=== PATIENT | female | born 1950 | race Caucasian/White ===

== ENCOUNTER 2017-01-06 11:41 | Inpatient (IN) ==
[2017-01-06] MEDS ORDERED: GLUCAGON 1 MG VIAL IM PRN ×2 (12:03)
[2017-01-06] MEDS ORDERED: ALBUTEROL/IPRATROPIUM 3 ML NEB RESP TX PRN (12:03)
[2017-01-06] MEDS ORDERED: DEXTROSE 50% 25 GM/50 ML VIAL IV PRN ×2 (12:03)
[2017-01-06] MEDS ORDERED: oxyCODONE/ACETAMINOPHEN 5-325 MG TABLET PO PRN (12:18)
[2017-01-06] MEDS ORDERED: BENZONATATE 100 MG CAPSULE PO PRN (12:31)
[2017-01-06] MEDS ORDERED: LEVOFLOXACIN INJ 250 MG in PREMIX 1 EACH IV SCH (13:30)
[2017-01-06] MEDS ORDERED: AMINOPHYLLINE 500 MG in SODIUM CHLORIDE 0.9% 480 ML IV SCH ×2 (13:45→15:30)
[2017-01-06] MEDS ORDERED: CLINDAMYCIN INJ 300 MG in PREMIX 1 EACH IV SCH (14:00)
[2017-01-06] MEDS ORDERED: methylPREDNISolone SOD SUC 40 MG/1 ML VIAL IV SCH (14:00)
[2017-01-06] MEDS ORDERED: AMINOPHYLLINE 250 MG in SODIUM CHLORIDE 0.9% 100 ML IV ONE (14:00)
--- NOTE | 2017-01-06 14:13 | EKG Report ---
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
[2017-01-06 14:25] LABS: Basophils # 0.1 10*3/uL (0.0-0.2); Basophils % 0.3 % (0.0-0.8); Eosinophils # 0.3 10*3/uL (0.0-0.87); Eosinophils % 1.7 % (0.00-10.9); Hematocrit 41.1 VOL% (35.7-47.0); Hemoglobin 12.4 GM/DL (12.0-16.0); Immature Granulocytes % 0.9 %; Immature Granulocytes Absolute 0.14 #; Lymphocytes # 3.8 10*3/uL (1.4-4.0); Mean Corpuscular HGB Conc 30.2 GM/DL (32-36); Mean Corpuscular Hemoglobin 28 PG (27-34); Mean Corpuscular Volume 93.8 FL (87-102); Monocytes # 0.9 10*3/uL (0.11-0.8); Monocytes % 5.9 % (1.7-12.7); Neutrophils % 66.2 % (38.7-73.9); Platelet Count 250 T/CUMM (130-400); Red Blood Count 4.38 MC/CUMM (3.8-5.5); Red Cell Distribution Width 15.7 % (9.3-17.3); White Blood Count 15.1 T/CUMM (4-12)
[2017-01-06 14:54] LABS: Alanine Aminotransferase 39 U/L (13-56); Albumin 3.1 G/DL (3.4-5.0); Alkaline Phosphatase 117 U/L (45-117); Aspartate Amino Transferase 26 U/L (0-37); Bilirubin,Total < 0.39 MG/DL (0.2-1.0); Blood Urea Nitrogen 37 MG/DL (7-18); Calcium 8.5 MG/DL (8.5-10.1); Glucose 149 MG/DL (74-106); Magnesium 1.5 MG/DL (1.8-2.4); Osmolality,Calculated 303.4 MOS/KG (273-304); Potassium 5.3 MMOL/L (3.5-5.1); Sodium 147 MMOL/L (136-145)
--- NOTE | 2017-01-06 15:01 | Pulmonology History & Physical ---
History of Present Illness Chief complaint: Acute exacerbation of COPD, acute bronchtitis refractory to OP treatment History of present illness: Jose Elias Pires, ANP-BC, GNP-BC, acting as scribe for Dr. Wilbur Marina Mrs. Crowe is a 66-year-old white female from [place], [place]. [facility] by Dr. Maurice Henao. She saw Dr. Henao on 01/02/2017 with complaints of increased shortness of breath and wheeze. The patient was diagnosed with acute bronchitis and bronchospasm. She was instructed to call with if no improvement. She states that over the course of this week she has become progressively more short of breath. She denies dyspnea on exertion and wheeze. She denies any significant sputum production. She states she is not able to mobilize the secretions. Because of her advanced age, multiple comorbidities, acute illness, and the fact that she is in outpatient treatment failure, she is being admitted for further evaluation and care. She denies chills or night sweats. She states she has run a low-grade fever over this past week. She denies solid dysphagia but does report reflux and often times it comes up into her throat. She denies any cardiac angina or palpitations. There's been no bleeding from any site. No TIA symptoms or syncope. No change in bowel or bladder habits. All other systems were reviewed and were negative. Allergies: Codeine, hydrocodone, penicillin, morphine Medications: See list Past medical history: [facility] hospitalization 07/29/2016 through 2015 under the care of Dr. Joey De La Fuente. During that hospitalization the patient was treated for COPD exacerbation as well as acute pneumonia. Gen. hospitalization the patient developed acute middle status changes felt to be secondary to her pain medicines. She was given Narcan at least once. She had a PCO2 as high as 101.0 at one point. She was treated with BiPAP and over time improved to the point where she could safely be discharged home. Past history is also significant for breast cancer on the left. She states she had a lumpectomy in 2007. History of diabetes mellitus, hypertension, COPD, tobacco abuse, diverticulitis/diverticulosis, obstructive sleep apnea, and anemia. Surgical history: Significant for cholecystectomy, hysterectomy, orthopedic shoulder surgery, adenoidectomy, colon stricture resection, tonsillectomy, and lumpectomy. Family history: Positive for breast cancer in her mother. There is also family history of diabetes and hypertension. Social history: The patient is . Her is supportive. She is a current smoker. She states it takes approximately 1-1/2 days to smoke one pack of cigarettes. She's been smoker for at least approximately 20 years. Laboratory (done 01/06/2017 at [facility]): White count is 16,800 with 66.8% segs, 24.2% lymphs, and 8.0% monos; H&H 12.6/40.6 with normal indices and increased red blood cell distribution width; platelet count 246,000 Chest x-ray: Pending EKG: Pending Home Medications Medication Instructions Recorded Confirmed Type Anastrozole 1 mg PO DAILY 07/29/16 08/25/16 History Aspirin EC Tab 81 mg PO DAILY 07/29/16 08/25/16 History B Complex & C No.20/Folic Acid 1 mg PO DAILY 07/29/16 08/25/16 History [Nephrocaps Softgel] Cetirizine Tab [ZyrTEC Tab] 10 mg PO DAILY 07/29/16 08/25/16 History Cholecalciferol (Vitamin D3) 2,000 unit PO DAILY 07/29/16 08/25/16 History [Vitamin D3] Fluticasone/Salmeterol 250-50 1 puff INH BID 07/29/16 08/25/16 History [Advair 250-50] Gabapentin 300 mg PO TID 07/29/16 08/25/16 History Hydralazine HCl 25 mg PO BID W/MEALS 07/29/16 08/25/16 History Insulin Glargine,Hum.rec.anlog 20 unit SUBCUT BEDTIME 07/29/16 08/25/16 History [Lantus SoloStar] Levothyroxine Tab [Synthroid Tab] 100 mcg PO DAILY@0700 07/29/16 08/25/16 History Metoprolol Succinate Xl [Toprol Xl] 25 mg PO DAILY 07/29/16 08/25/16 History Propranolol HCl [Propranolol Tab] 20 mg PO BID 07/29/16 08/25/16 History Rosuvastatin [Crestor] 10 mg PO BEDTIME 07/29/16 08/25/16 History risperiDONE [Risperidone] 0.5 mg PO BID 07/29/16 08/25/16 History sitaGLIPtin [Januvia] 100 mg PO DAILY 07/29/16 08/25/16 History Amitriptyline [Elavil] 25 mg PO BEDTIME 08/25/16 08/25/16 History Benzonatate 100 - 200 mg PO Q8H PRN 08/25/16 08/25/16 History Cholecalciferol (Vitamin D3) 1,000 unit PO DAILY 08/25/16 08/25/16 History [Vitamin D3 Chew Tab] Fluticasone/Salmeterol 250-50 1 puff INH BID 08/25/16 08/25/16 History [Advair 250-50] Ipratropium/Albuterol Inhaler 1 puff INH DAILY 08/25/16 08/25/16 History [Combivent Respimat Inhaler] Pantoprazole Tab [Protonix Tab] 40 mg PO DAILY 08/25/16 08/25/16 History Promethazine Tab [Phenergan Tab] 25 mg PO Q6H PRN 08/25/16 08/25/16 History Allergies Allergy/AdvReac Type Severity Reaction Status Date / Time codeine Allergy Severe Difficulty Verified 08/05/16 00:01 Breathing hydrocodone Allergy Severe Difficulty Verified 08/05/16 00:00 Breathing Penicillins Allergy Unknown Verified 08/05/16 00:03 morphine Allergy HIVES Verified 07/24/16 18:34 Medical,Surgical,& Family Hx - Medical History Cardio: History of: Hypertension No history of: Aneurysm, Cardiac Dysrhythmia, Cerebrovascular Disease, Congenital Heart Disease, CHF, CAD, MD, Pacemaker, PVD, Valvular Heart Disease, Cardiovascular Problems Psychological: No history of: Anxiety Disorders, ADHD, Behavior Problems, Bipolar Disorder, Depression, Previous Suicide Attempt, Psychiatric/Substance Abuse Tx, Schizophrenia, Violent Behavior, Psychiatric Problems Neurology: History of: Migraine, Seizures (last one january 2016) No history of: Brain Aneurysm, Cerebral Hemorrhage, Cerebrovascular Accident , Cerebral Palsy, Dementia, Multiple Sclerosis, Parkinson's Disease, Peripheral Neuropathy, TIA, Vertigo, Neurologocal Cancer HEENT: No history of: Ear Problem, Eye Problem, Dental Problems, Glaucoma, Oral Cancer Endocrine: History of: Diabetes Mellitus (IDDM), Diabetes Mellitus (NIDDM), Thyroid Disorder No history of: Dyslipidemia Rheumatology: History of;: Fibromyalgia No history of;: Gout, Myasthenia Gravis, Psoriasis, Rheumatoid Arthritis, Sjogrens, Systemic Lupus Erythematosus, Rheumatological Problems Respiratory: History of: Asthma, Bronchitis, COPD, Intubation (January 2016 they gave morphine and pt was allergic to it, went into resp dis), Pneumonia No history of: Obstructive Sleep Apnea, Pulmonary Embolism, Pulmonary Hypertension, Lung Cancer, Respiratory Problems Renal: No history of: Renal (Kidney) Cancer, Dialysis, Renal Failure, Renal Problems Genitourinary: No history of: Kidney Stones (left kidney functions right kidney never grew from ), Recurring Urinary Tract Infections, Genitourinary Cancer, Problems Gastrointestinal: History of: Diverticulitis/ Diverticulosis No history of: Bowel Obstruction, Clostridium Difficile, Crohn's Disease, Esophageal Varices, GERD, Gastrointestinal Bleed, Hemorrhoids, Hematochezia, Hepatitis, Liver Problems, Pancreatitis, Polyps, Ulcerative Colitis, Gastrointestinal Cancer, GI Problems Musculoskeletal: History of: Back/Neck Problems (broken vertebra) No history of: Herniated Disk, Osteoporosis, Musculoskeletal Cancer, Musculoskeletal Problems Hematology: History of: Anemia No history of: Blood Transfusion Reaction, Bleeding Problems, Clotting Problems, Sickle Cell Disease, Hematologic Cancer, Blood Disorders Reproductive: History of: Breast Cancer (2007) No history of: Abnormal Pap Smear Other: History of: Anaphylaxis (when morphine was given in 2007), Cancer ( Breast cancer (Left breast) ') No history of: Anesthesia Reactions, Eczema, HIV, Malignant Hyperthermia, MRSA, Vancomycin-Resistant Enterococci, Skin Problems - Surgical History Cardiac Surgeries: Patient Denies: Femoral-Popliteal Bypass Graft, Cardiac Catheterization, Cardiac Surgery, Carotid Endarterectomy, Internal Defibrillator, Vascular Access Devices Thoracic Surgeries: Patient denies;: Kidney (Renal Surgery), Lithotripsy, Nephrectomy, Organ Transplant, Lobectomy Neurologic Surgeries: Patient denies: Brain Aneurysm, Cerebral Hemorrhage, Neurologic Surgery HEENT Surgeries: Surgical HX of: Tonsilectomy & Adenoidectomy Patient denies: Carotid Endarterectomy, Eye Surgery Abdominal Surgeries: Surgical HX of: Abdominal Surgery, Appendectomy, Cholecystectomy, Colonoscopy, EGD Patient denies: Gastric Bypass Surgery, Hernia Repair, Splenectomy Reproductive Surgeries: Surgical HX of;: Hysterectomy Patient denies;: Cystoscopy, Genitourinary Surgery Orthopedic Surgeries: Surgical HX of;: Orthopedic Surgery (shoulder surgery on both shoulders) - Family History Family History: Reports;: Family Cancer (mother-breast ca) Denies;: Family Anesthesia Reaction, Family Diabetes, Family Heart Disease, Family Hypertension, Family Psychiatric Problems, Family Stroke - Social History Smoking Status: Former smoker Frequency of Alcohol Use: None Type of Drug Use: Marijuana Results - Labs CBC & BMP: 01/06/17 14:01 01/06/17 14:00 Exam (Pulmonay) H&P - Constitutional Exam: Psych: Oriented x 3; a pleasant and cooperative patient who is acutely and chronically ill appearing HEENT: Pupils, irises, sclera, conjunctiva, and eyelids are normal. The face is symmetrical without rash or masses. Lips, tongue, buccal mucosa, soft and hard palates, and phayrnx are WNL Neck: Symmetrical. Thyroid was not palpated. Lymphatics: No submandibular, cervical, or supraclavicular adenopathy Chest: Symmetrical with significant LAW and high pitched peripheral wheezes heard, loose LAW congestion Breasts: Deferred CV: Regular with a short grade 1/6 systolic ejection murmur at the left sternal border that does not radiate Arterial: Carotids with a fair upstroke. There is no bruit. Upper extremity pulses are palpable. Lower extremity pulses are palpable. Venous: Exam of the neck, upper, and lower extremities is normal Abd: Obese, but no appreciable organomegaly, masses, tenderness, or bruit; Bowel sounds are positive x 4; The aorta was not palpated /Rectal: Deferred Extremities: No clubbing, cyanosis, or obvious DVT, but there is mild bilateral edema Skin: No cancerous or infectious lesions of the exposed, examined skin; the perineal area was not examined M/S: Age appropriate loss of the normal curvature of the cervical, thoracic, and lumbar spine Neurological: Cranial nerves are intact, Long tract motor function is intact; Sensory exam was not done; gait was not tested. The remainder of the exam was noncontributory. Impression: #1: Acute exacerbation of COPD refractory to OP treatment #2: Acute bronchitis with bronchospasm #3: Hypertension #4: Diabetes mellitus #5: COPD #6: Tobacco abuse #7: History of breast cancer on the left; s/p lumpectomy #8: Hx of diverticulosis/diverticulitis #9: Leukocytosis #10: See past history Plan: #1: Admit to inpatient #2: Iv antibiotics with Levaquin and Cleocin #3: IV Aminophylline #4: IV Solumedrol #5: Sliding scale insulin #6: Inhalation therapy #7: Singulair and Mucinex #8: See orders
--- NOTE | 2017-01-06 15:27 | Ultrasound Report ---
History: Shortness of breath. Lower extremity pain and edema Date: 01/06/2017 Study: Bilateral lower extremity color flow venous Doppler study Comparison exam: July 29, 2016 venous study Color Doppler, wave form analysis, and compression analysis of the deep veins of both lower extremities from the common femoral vein level through the popliteal vein level shows that the veins are readily compressible. There is no abnormal intraluminal material to suggest thrombus. Waveform analysis is unremarkable. Ultrasound images were captured and archived Impression: Normal bilateral lower extremity color flow venous Doppler study. No evidence of deep venous thrombosis PROCEDURE INTERPRETED AT [facility] DEPARTMENT OF RADIOLOGY Final Report Signed by: Dr. Shyla Lobo
[2017-01-06] MEDS: ALBUTEROL/IPRATROPIUM 3 ML NEB RESP TX SCH ×2 (15:49→19:00)
[2017-01-06] MEDS: GABAPENTIN 300 MG CAPSULE PO SCH ×2 (16:37→22:09)
[2017-01-06] MEDS: CYCLOBENZAPRINE 10 MG TABLET PO SCH ×2 (16:37→22:11)
[2017-01-06] MEDS: AMINOPHYLLINE 500 MG in SODIUM CHLORIDE 0.9% 480 ML IV SCH (16:40)
[2017-01-06] MEDS: INSULIN LISPRO 100 UNIT/ML SUBCUT SCH ×2 (16:41→22:12)
[2017-01-06] MEDS: methylPREDNISolone SOD SUC 40 MG/1 ML VIAL IV SCH ×2 (16:46→23:51)
[2017-01-06] MEDS: CLINDAMYCIN INJ 300 MG in PREMIX 1 EACH IV SCH ×2 (16:47→23:51)
[2017-01-06] MEDS: LEVOFLOXACIN INJ 250 MG in PREMIX 1 EACH IV SCH (17:46)
[2017-01-06 18:11] LABS: Apearance,Urine CLEAR (Clear); Bilirubin,Urine Negative (Negative); Blood, Urine Negative (Negative); Glucose,Urine (UA) 50 mg/dL (Negative); Ketones,Urine Negative (Negative); Mucus,Urine Occasional /LPF (Occasional); Nitrite,Urine Negative (Negative); Protein,Urine >=500 MG/DL; RBC,Urine 1 /HPF (0-4); Squamous Epithelial Cell,Urine Occasional /HPF (0-10); Urine Color Yellow (Yellow); Urine Specific Gravity 1.014 (1.001-1.035); Urine Urobilinogen < 2.0 EU/DL (0.2-1.0); WBC,Urine <1 /HPF (0-6)
[2017-01-06] MEDS ORDERED: INSULIN GLARGINE 100 UNIT/ML SUBCUT SCH (21:00)
[2017-01-06] MEDS: MONTELUKAST 10 MG TABLET PO SCH (22:10)
[2017-01-06] MEDS: ROSUVASTATIN 10 MG TABLET PO SCH (22:10)
[2017-01-06] MEDS: risperiDONE 0.5 MG TABLET PO SCH (22:11)
[2017-01-06] MEDS: FAMOTIDINE 20 MG TABLET PO SCH (22:11)
[2017-01-06] MEDS: hydrALAZINE 25 MG TABLET PO SCH (22:11)
[2017-01-07] MEDS: LEVOTHYROXINE 100 MCG TABLET PO SCH (06:18)
[2017-01-07 06:29] LABS: Calcium 8.7 MG/DL (8.5-10.1); Osmolality,Calculated 305.6 MOS/KG (273-304)
[2017-01-07 06:31] LABS: Potassium 6.3 MMOL/L (3.5-5.1)
[2017-01-07 06:41] LABS: Basophils % 0.1 % (0.0-0.8); Immature Granulocytes % 1.3 %; Immature Granulocytes Absolute 0.13 #; Lymphocytes # 0.8 10*3/uL (1.4-4.0); Lymphocytes % 7.7 % (21.3-54.2); Mean Corpuscular Hemoglobin 28 PG (27-34); Mean Corpuscular Volume 94.3 FL (87-102); Mean Platelet Volume 9.2 FL (9.6-12.0); Monocytes # 0.1 10*3/uL (0.11-0.8); Monocytes % 0.9 % (1.7-12.7); Neutrophils # 9.2 10*3/uL (1.4-7.4); Platelet Count 223 T/CUMM (130-400); Red Blood Count 4.24 MC/CUMM (3.8-5.5); Red Cell Distribution Width 15.7 % (9.3-17.3); White Blood Count 10.2 T/CUMM (4-12)
[2017-01-07] MEDS: ALBUTEROL/IPRATROPIUM 3 ML NEB RESP TX SCH ×4 (07:41→19:20)
[2017-01-07] MEDS: PANTOPRAZOLE 40 MG TABLET PO SCH (08:37)
[2017-01-07] MEDS: METOPROLOL SUCCINATE XL 25 MG TABLET PO SCH (08:37)
[2017-01-07] MEDS: sitaGLIPtin 100 MG TABLET PO SCH (08:37)
[2017-01-07] MEDS: MULTIVITAMIN (BEROCCA) TABLET PO SCH (08:37)
[2017-01-07] MEDS: CHOLECALCIFEROL 1,000 UNIT TABLET PO SCH (08:37)
[2017-01-07] MEDS: MONTELUKAST 10 MG TABLET PO SCH ×2 (08:37→21:56)
[2017-01-07] MEDS: FAMOTIDINE 20 MG TABLET PO SCH ×2 (08:38→21:56)
[2017-01-07] MEDS: ANASTROZOLE 1 MG TABLET PO SCH (08:38)
[2017-01-07] MEDS: GABAPENTIN 300 MG CAPSULE PO SCH ×3 (08:38→21:56)
[2017-01-07] MEDS: ASPIRIN EC 81 MG TABLET PO SCH (08:38)
[2017-01-07] MEDS: CYCLOBENZAPRINE 10 MG TABLET PO SCH ×3 (08:38→21:56)
[2017-01-07] MEDS: COLCHICINE 0.6 MG TABLET PO SCH (08:38)
[2017-01-07] MEDS: hydrALAZINE 25 MG TABLET PO SCH ×2 (08:38→21:56)
[2017-01-07] MEDS: risperiDONE 0.5 MG TABLET PO SCH ×2 (08:38→21:56)
[2017-01-07] MEDS: CETIRIZINE 10 MG TABLET PO SCH (08:38)
[2017-01-07] MEDS: methylPREDNISolone SOD SUC 40 MG/1 ML VIAL IV SCH ×2 (08:39→10:20)
[2017-01-07] MEDS: CLINDAMYCIN INJ 300 MG in PREMIX 1 EACH IV SCH ×2 (08:39→16:26)
--- NOTE | 2017-01-07 09:17 | XRay Report ---
History: Shortness of breath Date: 01/07/2017 Study: Chest x-ray PA and lateral Comparison exam: Chest x-ray August 25, 2016 There is mild cardiomegaly. The mediastinal contours are stable compared to the previous study. The pulmonary vasculature is not engorged. There is no pleural effusion. There is some focal patchy density over the left upper lung which could represent pneumonia. There are some scattered emphysematous changes. The osseous structures are unchanged with mild to moderate thoracic spondylosis. There has been previous right shoulder replacement. Impression: Localized patchy pneumonia left upper lung. Radiographic follow-up to resolution is recommended to help exclude other underlying pathology. Mild cardiomegaly PROCEDURE INTERPRETED AT [facility] DEPARTMENT OF RADIOLOGY Final Report Signed by: Dr. Shyla Lobo
[2017-01-07] MEDS: INSULIN LISPRO 100 UNIT/ML SUBCUT SCH ×4 (09:39→21:56)
[2017-01-07] MEDS ORDERED: SODIUM POLYSTYRENE SULFATE 15 GM/60 ML BOTTLE PO ONE (09:53)
--- NOTE | 2017-01-07 10:04 | Pulmonology Progress Note ---
Pulmonary - PN: Subj Interval history: This 66-year-old white female has a history of COPD with acute bronchitis. She came in with acute exacerbation. She is diabetic. She smokes regularly and is now on a NicoDerm patch. Venous Dopplers were done and were negative. Dr. Marina was concerned about possible DVT in her left leg. Patient has a history of breast cancer and is followed by an oncologist in [place]. She apparently runs a slightly elevated potassium all the time. This morning her potassium was 6.3. I reviewed her medications and do not find a specific cause for it. Likely it is renal tubular dysfunction related to her diabetes. We'll give her Kayexalate. Exam (Progress Note) - Constitutional Vitals: Period Temp Pulse Resp BP Sys/Rod Pulse Ox Last 24 Hr 96.5 F-98.2 F 62-89 16-22 144-165/58-93 91-97 Exam: Patient is alert oriented seated on the side of the bed. Vital signs normal. Pupils react to light. Throat is clear. Neck supple no bruits. Chest reveals prolonged expiratory phase with some expiratory wheezes and rhonchi. She is not tight. Heart normal rate rhythm no murmurs. Abdomen soft nontender no masses. Extremities no clubbing cyanosis or edema. Calves nontender. Results - Labs CBC & BMP: 01/07/17 05:31 01/07/17 05:31 Lab Results: I have reviewed the past 24 hour labs Assessment and Plan (1) History of breast cancer Status: Acute Assessment and plan: Followed by oncologist in [place]. Reportedly in remission. Current Visit: Yes (2) Hyperkalemia Status: Acute Assessment and plan: Potassium of 6.3. She is diabetic and has a creatinine of 1.9. Probably has diabetic related renal tubular abnormalities. She's given Kayexalate. Current Visit: Yes (3) Diabetes mellitus Status: Acute Assessment and plan: Poorly controlled with current regimen. We will adjust medications. Current Visit: Yes (4) COPD with exacerbation Status: Acute Assessment and plan: Continuing with antibiotics and bronchodilators. We'll reduce steroids because of hyperglycemia. Current Visit: No (5) Pneumonia Status: Acute Assessment and plan: Has slight patchy infiltrate in the left upper lobe. May have been there on previous portable x-ray of 08/25/2016. However would treat as community- acquired pneumonia. Current Visit: No
[2017-01-07] MEDS ORDERED: INSULIN GLARGINE 100 UNIT/ML SUBCUT SCH (10:08)
[2017-01-07] MEDS: NICOTINE 14 MG/24 HR PATCH TRANSDERM SCH (12:06)
[2017-01-07] MEDS: AMINOPHYLLINE 500 MG in SODIUM CHLORIDE 0.9% 480 ML IV SCH (17:34)
[2017-01-07] MEDS: LEVOFLOXACIN INJ 250 MG in PREMIX 1 EACH IV SCH (18:00)
[2017-01-07] MEDS: ROSUVASTATIN 10 MG TABLET PO SCH (21:56)
[2017-01-08] MEDS: CLINDAMYCIN INJ 300 MG in PREMIX 1 EACH IV SCH ×4 (02:00→23:05)
[2017-01-08 06:05] LABS: Basophils % 0.2 % (0.0-0.8); Hematocrit 38.3 VOL% (35.7-47.0); Hemoglobin 11.4 GM/DL (12.0-16.0); Immature Granulocytes % 1.1 %; Immature Granulocytes Absolute 0.17 #; Lymphocytes # 2.8 10*3/uL (1.4-4.0); Mean Corpuscular HGB Conc 29.8 GM/DL (32-36); Mean Corpuscular Hemoglobin 28 PG (27-34); Mean Corpuscular Volume 95.5 FL (87-102); Mean Platelet Volume 8.9 FL (9.6-12.0); Monocytes % 6.1 % (1.7-12.7); Neutrophils # 11.7 10*3/uL (1.4-7.4); Neutrophils % 74.6 % (38.7-73.9); Platelet Count 205 T/CUMM (130-400); Red Blood Count 4.01 MC/CUMM (3.8-5.5); Red Cell Distribution Width 15.9 % (9.3-17.3); White Blood Count 15.6 T/CUMM (4-12)
[2017-01-08 06:06] LABS: Calcium 8.4 MG/DL (8.5-10.1); Osmolality,Calculated 306.1 MOS/KG (273-304); Potassium 5.5 MMOL/L (3.5-5.1)
[2017-01-08] MEDS: LEVOTHYROXINE 100 MCG TABLET PO SCH (06:29)
[2017-01-08] MEDS: ALBUTEROL/IPRATROPIUM 3 ML NEB RESP TX SCH ×4 (07:07→19:28)
[2017-01-08] MEDS: COLCHICINE 0.6 MG TABLET PO SCH (09:15)
[2017-01-08] MEDS: CETIRIZINE 10 MG TABLET PO SCH (09:15)
[2017-01-08] MEDS: MONTELUKAST 10 MG TABLET PO SCH ×2 (09:15→21:11)
[2017-01-08] MEDS: hydrALAZINE 25 MG TABLET PO SCH ×2 (09:15→21:10)
[2017-01-08] MEDS: NICOTINE 14 MG/24 HR PATCH TRANSDERM SCH (09:15)
[2017-01-08] MEDS: ASPIRIN EC 81 MG TABLET PO SCH (09:16)
[2017-01-08] MEDS: GABAPENTIN 300 MG CAPSULE PO SCH ×3 (09:16→21:10)
[2017-01-08] MEDS: PANTOPRAZOLE 40 MG TABLET PO SCH (09:16)
[2017-01-08] MEDS: CHOLECALCIFEROL 1,000 UNIT TABLET PO SCH (09:16)
[2017-01-08] MEDS: ANASTROZOLE 1 MG TABLET PO SCH (09:16)
[2017-01-08] MEDS: risperiDONE 0.5 MG TABLET PO SCH ×2 (09:16→21:10)
[2017-01-08] MEDS: MULTIVITAMIN (BEROCCA) TABLET PO SCH (09:16)
[2017-01-08] MEDS: FAMOTIDINE 20 MG TABLET PO SCH ×2 (09:16→21:10)
[2017-01-08] MEDS: METOPROLOL SUCCINATE XL 25 MG TABLET PO SCH (09:16)
[2017-01-08] MEDS: sitaGLIPtin 100 MG TABLET PO SCH (09:16)
[2017-01-08] MEDS: CYCLOBENZAPRINE 10 MG TABLET PO SCH ×3 (09:17→21:10)
[2017-01-08] MEDS: INSULIN LISPRO 100 UNIT/ML SUBCUT SCH ×4 (09:29→21:11)
--- NOTE | 2017-01-08 09:33 | Pulmonology Progress Note ---
Pulmonary - PN: Subj Interval history: This 66-year-old white female has a history of COPD with acute bronchitis. She came in with acute exacerbation. She is diabetic. She smokes regularly and is now on a NicoDerm patch. Venous Dopplers were done and were negative. Dr. Marina was concerned about possible DVT in her left leg. Patient has a history of breast cancer and is followed by an oncologist in [place]. She apparently runs a slightly elevated potassium all the time. This morning her potassium was 6.3. I reviewed her medications and do not find a specific cause for it. Likely it is renal tubular dysfunction related to her diabetes. We'll give her Kayexalate. 01/08/17 she feels a little better. Still some cough and wheezing. Potassium is down to 5.5 after Kayexalate. Exam (Progress Note) - Constitutional Vitals: Period Temp Pulse Resp BP Sys/Rod Pulse Ox Last 24 Hr 96.8 F-98.4 F 78-99 17-21 117-153/51-69 92-99 Exam: Patient is alert oriented seated on the side of the bed. Vital signs normal. Pupils react to light. Throat is clear. Neck supple no bruits. Chest reveals prolonged expiratory phase with some expiratory wheezes and rhonchi. She is not tight. Heart normal rate rhythm no murmurs. Abdomen soft nontender no masses. Extremities no clubbing cyanosis or edema. Calves nontender. Little change from yesterday. Results - Labs CBC & BMP: 01/08/17 04:22 01/08/17 04:22 Lab Results: I have reviewed the past 24 hour labs Assessment and Plan (1) History of breast cancer Status: Acute Assessment and plan: Followed by oncologist in [place]. Reportedly in remission. Current Visit: Yes (2) Hyperkalemia Status: Acute Assessment and plan: Potassium of 6.3. She is diabetic and has a creatinine of 1.9. Probably has diabetic related renal tubular abnormalities. She's given Kayexalate. 01/08/17 potassium 5.5. Not on any medications that would elevate potassium. This is likely due to diabetic effects on her kidneys. Current Visit: Yes (3) Diabetes mellitus Status: Acute Assessment and plan: Poorly controlled with current regimen. We will adjust medications. 01/08/17 blood sugars a little bit better. Needs further adjustment. Current Visit: Yes (4) COPD with exacerbation Status: Acute Assessment and plan: Continuing with antibiotics and bronchodilators. We'll reduce steroids because of hyperglycemia. 01/08/17 COPD is a little better. Chronic keep steroids low-dose. Current Visit: No (5) Pneumonia Status: Acute Assessment and plan: Has slight patchy infiltrate in the left upper lobe. May have been there on previous portable x-ray of 08/25/2016. However would treat as community- acquired pneumonia. 01/08/17 continuing empiric antibiotics. Current Visit: No
[2017-01-08] MEDS: methylPREDNISolone SOD SUC 40 MG/1 ML VIAL IV SCH (10:41)
[2017-01-08] MEDS: AMINOPHYLLINE 500 MG in SODIUM CHLORIDE 0.9% 480 ML IV SCH (16:17)
[2017-01-08] MEDS: LEVOFLOXACIN INJ 250 MG in PREMIX 1 EACH IV SCH (17:50)
[2017-01-08] MEDS: INSULIN GLARGINE 100 UNIT/ML SUBCUT SCH (21:11)
[2017-01-08] MEDS: ROSUVASTATIN 10 MG TABLET PO SCH (21:11)
[2017-01-09] MEDS: LEVOTHYROXINE 100 MCG TABLET PO SCH (06:25)
[2017-01-09 06:31] LABS: Basophils % 0.3 % (0.0-0.8); Eosinophils % 0.1 % (0.00-10.9); Immature Granulocytes % 2.3 %; Immature Granulocytes Absolute 0.31 #; Lymphocytes # 2.4 10*3/uL (1.4-4.0); Lymphocytes % 17.6 % (21.3-54.2); Mean Corpuscular HGB Conc 28.9 GM/DL (32-36); Mean Corpuscular Hemoglobin 28 PG (27-34); Mean Platelet Volume 8.9 FL (9.6-12.0); Monocytes # 0.7 10*3/uL (0.11-0.8); Monocytes % 5.2 % (1.7-12.7); Neutrophils # 10.1 10*3/uL (1.4-7.4); Neutrophils % 74.5 % (38.7-73.9); Platelet Count 222 T/CUMM (130-400); Red Cell Distribution Width 16.4 % (9.3-17.3); White Blood Count 13.6 T/CUMM (4-12)
[2017-01-09 06:35] LABS: Hematocrit 39.3 VOL% (35.7-47.0)
[2017-01-09 06:36] LABS: Hemoglobin 11.6 GM/DL (12.0-16.0)
[2017-01-09 06:39] LABS: Calcium 8.6 MG/DL (8.5-10.1); Osmolality,Calculated 303.4 MOS/KG (273-304)
[2017-01-09 06:47] LABS: Potassium 6.7 MMOL/L (3.5-5.1)
[2017-01-09 06:51] LABS: Elliptocytes Few; Hypochromasia Slight
[2017-01-09 06:52] LABS: Platelet Estimate Normal
[2017-01-09] MEDS: ALBUTEROL/IPRATROPIUM 3 ML NEB RESP TX SCH ×4 (07:15→19:30)
[2017-01-09] MEDS: INSULIN LISPRO 100 UNIT/ML SUBCUT SCH ×4 (08:34→21:35)
[2017-01-09] MEDS: CLINDAMYCIN INJ 300 MG in PREMIX 1 EACH IV SCH ×2 (08:35→17:41)
[2017-01-09] MEDS: sitaGLIPtin 100 MG TABLET PO SCH (08:38)
[2017-01-09] MEDS: CETIRIZINE 10 MG TABLET PO SCH (08:38)
[2017-01-09] MEDS: ANASTROZOLE 1 MG TABLET PO SCH (08:38)
[2017-01-09] MEDS: FAMOTIDINE 20 MG TABLET PO SCH ×2 (08:38→21:36)
[2017-01-09] MEDS: METOPROLOL SUCCINATE XL 25 MG TABLET PO SCH (08:39)
[2017-01-09] MEDS: GABAPENTIN 300 MG CAPSULE PO SCH ×3 (08:39→21:36)
[2017-01-09] MEDS: PANTOPRAZOLE 40 MG TABLET PO SCH (08:39)
[2017-01-09] MEDS: risperiDONE 0.5 MG TABLET PO SCH ×2 (08:39→21:36)
[2017-01-09] MEDS: CHOLECALCIFEROL 1,000 UNIT TABLET PO SCH (08:39)
[2017-01-09] MEDS: CYCLOBENZAPRINE 10 MG TABLET PO SCH ×3 (08:39→21:36)
[2017-01-09] MEDS: hydrALAZINE 25 MG TABLET PO SCH ×2 (08:39→21:36)
[2017-01-09] MEDS: MONTELUKAST 10 MG TABLET PO SCH ×2 (08:39→21:36)
[2017-01-09] MEDS: ASPIRIN EC 81 MG TABLET PO SCH (08:40)
[2017-01-09] MEDS: MULTIVITAMIN (BEROCCA) TABLET PO SCH (08:40)
[2017-01-09] MEDS: NICOTINE 14 MG/24 HR PATCH TRANSDERM SCH (08:40)
[2017-01-09] MEDS: COLCHICINE 0.6 MG TABLET PO SCH (08:40)
--- NOTE | 2017-01-09 10:09 | Pulmonology Progress Note ---
Pulmonary - PN: Subj Interval history: There is a 66-year-old white female admitted from my office. She was referred from family practice. My impressions were. #1: Acute exacerbation of COPD refractory to OP treatment #2: Acute bronchitis with bronchospasm #3: Hypertension. Previous nephrectomy. Chronic renal failure. #4: Diabetes mellitus #5: COPD #6: Tobacco abuse #7: History of breast cancer on the left; s/p lumpectomy #8: Hx of diverticulosis/diverticulitis #9: Leukocytosis #10: See past history. Hypothyroidism. Cholecystectomy. Shoulder surgery. Appendectomy. Partial colon resection for stricture. Obstructive sleep apnea. 01/09/2017. Patient is nearly wheeze free. Her pulmonary status is markedly improved. On today's x-ray there is a small abnormality in the left upper lung. It is possible this is an infiltrate mixed in with the areas of calcification. Always have to consider that this may glove turner to be a "popcorn " lesion often seen with hamartomas. Patient has a long history of elevated potassiums. Earlier during this admission she responded to Kayexalate. Potassium is up to 6.7 today and I have asked renal to see her. This patient has only one kidney. Sodium is 147. Chloride is 115. White count is 13,675 segs. H&H 11.6/39.3. Protein and albumin of previously been low. Urine shows no evidence of infection. Theophylline on 20 mg of Aminophyllin per hour is 4.8. Her case this is therapeutic because she is no longer wheezing. I again talked to the patient today about stopping smoking. Based on her answers and attitude I do not think she plans to stop. Jose Elias Pires nurse practitioner was present. Depending on what is found with the patient's height hyperkalemia she might be ready for discharge tomorrow or the next day. We will follow-up chest x-ray tomorrow. Physical exam. Vital signs. See below Psychiatric. Oriented 3 Neurologic. Cranial nerves are intact. Long track motor functions intact Chest. Wheeze free Heart. No gallop Abdomen. Obese. Positive bowel sounds. Nontender Extremities. Nothing to suggest deep venous thrombophlebitis. Neck. Symmetrical. No meningismus. Lymphatics. No submandibular cervical supraclavicular or epitrochlear adenopathy. The remainder of the physical exam is non-contributory. Plan: #1: 01/09/2017. Convert IV Aminophyllin to theophylline 200 p.o. twice daily. #2: Iv antibiotics with Levaquin and Cleocin #3: IV Aminophylline #4: IV Solumedrol #5: Sliding scale insulin #6: Inhalation therapy #7: Singulair and Mucinex #8: See orders 9. 01/09/2017. Consult renal for evaluation and treatment of hyperkalemia. Note the patient has only one kidney and she has chronic renal failure Exam (Progress Note) - Constitutional Vitals: Period Temp Pulse Resp BP Sys/Rod Pulse Ox Last 24 Hr 97.2 F-99.4 F 71-97 16-20 114-162/50-82 95-100 Results - Labs CBC & BMP: 01/09/17 05:31 01/09/17 05:31
[2017-01-09] MEDS: THEOPHYLLINE ER (24 HR) 400 MG CAPSULE PO SCH (10:21)
[2017-01-09] MEDS: methylPREDNISolone SOD SUC 40 MG/1 ML VIAL IV SCH (10:22)
[2017-01-09] MEDS ORDERED: SODIUM POLYSTYRENE SULFATE 15 GM/60 ML BOTTLE PO ONE (13:54)
[2017-01-09] MEDS: SODIUM CHLORIDE 0.45% 1,000 ML IV SCH (14:38)
[2017-01-09] MEDS: FUROSEMIDE 40 MG/4 ML VIAL IV SCH ×2 (14:39→21:35)
[2017-01-09] MEDS ORDERED: ONDANSETRON 4 MG/2 ML VIAL IV PRN (14:54)
--- NOTE | 2017-01-09 16:50 | Nephrology Consult Note ---
History of Present Illness Chief complaint: chronic kidney disease hyperkalemia History of present illness: Ms. Crowe is a 66 year old female with a history of hypertension who has been admitted for COPD exacerbation and pneumonia. Patient's serum creatinine is noted to be 2.2. However over the past several days patient serum potassium has been up and has trended up to 6 points 7 today. [employer] has been consulted for hyperkalemia. There is no history of NSAID use and there is no history of potassium supplementation. She denies any shortness of breath or chest pain. Of note, patient is on Januvia for diabetes. At this time we'll discontinue Januvia we'll start Lasix 40 mg IV every 6 and will also repeat potassium this afternoon. Home Medications Medication Instructions Recorded Confirmed Type Anastrozole 1 mg PO DAILY 07/29/16 01/06/17 History Aspirin EC Tab 81 mg PO DAILY 07/29/16 01/06/17 History B Complex & C No.20/Folic Acid 1 mg PO DAILY 07/29/16 01/06/17 History [Nephrocaps Softgel] Cetirizine Tab [ZyrTEC Tab] 10 mg PO DAILY 07/29/16 01/06/17 History Cholecalciferol (Vitamin D3) 2,000 unit PO DAILY 07/29/16 01/06/17 History [Vitamin D3] Fluticasone/Salmeterol 250-50 1 puff INH BID 07/29/16 01/06/17 History [Advair 250-50] Gabapentin 300 mg PO TID 07/29/16 01/06/17 History Hydralazine HCl 25 mg PO BID W/MEALS 07/29/16 01/06/17 History Insulin Glargine,Hum.rec.anlog 20 unit SUBCUT BEDTIME 07/29/16 01/06/17 History [Lantus SoloStar] Levothyroxine Tab [Synthroid Tab] 100 mcg PO DAILY@0700 07/29/16 01/06/17 History Metoprolol Succinate Xl [Toprol Xl] 25 mg PO DAILY 07/29/16 01/06/17 History Propranolol HCl [Propranolol Tab] 20 mg PO BID 07/29/16 01/06/17 History Rosuvastatin [Crestor] 10 mg PO BEDTIME 07/29/16 01/06/17 History risperiDONE [Risperidone] 0.5 mg PO BID 07/29/16 01/06/17 History sitaGLIPtin [Januvia] 100 mg PO DAILY 07/29/16 01/06/17 History Amitriptyline [Elavil] 25 mg PO BEDTIME 08/25/16 01/06/17 History Benzonatate 100 - 200 mg PO Q8H PRN 08/25/16 01/06/17 History Cholecalciferol (Vitamin D3) 1,000 unit PO DAILY 08/25/16 01/06/17 History [Vitamin D3 Chew Tab] Fluticasone/Salmeterol 250-50 1 puff INH BID 08/25/16 01/06/17 History [Advair 250-50] Ipratropium/Albuterol Inhaler 1 puff INH DAILY 08/25/16 01/06/17 History [Combivent Respimat Inhaler] Pantoprazole Tab [Protonix Tab] 40 mg PO DAILY 08/25/16 01/06/17 History Promethazine Tab [Phenergan Tab] 25 mg PO Q6H PRN 08/25/16 01/06/17 History Allergies Allergy/AdvReac Type Severity Reaction Status Date / Time codeine Allergy Severe Difficulty Verified 08/05/16 00:01 Breathing hydrocodone Allergy Severe Difficulty Verified 08/05/16 00:00 Breathing Penicillins Allergy Unknown Verified 08/05/16 00:03 morphine Allergy HIVES Verified 07/24/16 18:34 Medical,Surgical,& Family Hx - Medical History Cardio: History of: Hypertension No history of: Aneurysm, Cardiac Dysrhythmia, Cerebrovascular Disease, Congenital Heart Disease, CHF, CAD, VT, Pacemaker, PVD, Valvular Heart Disease, Cardiovascular Problems Psychological: No history of: Anxiety Disorders, ADHD, Behavior Problems, Bipolar Disorder, Depression, Previous Suicide Attempt, Psychiatric/Substance Abuse Tx, Schizophrenia, Violent Behavior, Psychiatric Problems Neurology: History of: Migraine, Seizures (last one january 2016) No history of: Brain Aneurysm, Cerebral Hemorrhage, Cerebrovascular Accident , Cerebral Palsy, Dementia, Multiple Sclerosis, Parkinson's Disease, Peripheral Neuropathy, TIA, Vertigo, Neurologocal Cancer HEENT: No history of: Ear Problem, Eye Problem, Dental Problems, Glaucoma, Oral Cancer Endocrine: History of: Diabetes Mellitus (IDDM), Diabetes Mellitus (NIDDM), Thyroid Disorder No history of: Dyslipidemia Rheumatology: History of;: Fibromyalgia No history of;: Gout, Myasthenia Gravis, Psoriasis, Rheumatoid Arthritis, Sjogrens, Systemic Lupus Erythematosus, Rheumatological Problems Respiratory: History of: Asthma, Bronchitis, COPD, Intubation (January 2016 they gave morphine and pt was allergic to it, went into resp dis), Pneumonia No history of: Obstructive Sleep Apnea, Pulmonary Embolism, Pulmonary Hypertension, Lung Cancer, Respiratory Problems Renal: No history of: Renal (Kidney) Cancer, Dialysis, Renal Failure, Renal Problems Genitourinary: No history of: Kidney Stones (left kidney functions right kidney never grew from ), Recurring Urinary Tract Infections, Genitourinary Cancer, Problems Gastrointestinal: History of: Diverticulitis/ Diverticulosis No history of: Bowel Obstruction, Clostridium Difficile, Crohn's Disease, Esophageal Varices, GERD, Gastrointestinal Bleed, Hemorrhoids, Hematochezia, Hepatitis, Liver Problems, Pancreatitis, Polyps, Ulcerative Colitis, Gastrointestinal Cancer, GI Problems Musculoskeletal: History of: Back/Neck Problems (broken vertebra) No history of: Herniated Disk, Osteoporosis, Musculoskeletal Cancer, Musculoskeletal Problems Hematology: History of: Anemia No history of: Blood Transfusion Reaction, Bleeding Problems, Clotting Problems, Sickle Cell Disease, Hematologic Cancer, Blood Disorders Reproductive: History of: Breast Cancer (2007) No history of: Abnormal Pap Smear Other: History of: Anaphylaxis (when morphine was given in 2007), Cancer ( Breast cancer (Left breast) ') No history of: Anesthesia Reactions, Eczema, HIV, Malignant Hyperthermia, MRSA, Vancomycin-Resistant Enterococci, Skin Problems - Surgical History Cardiac Surgeries: Patient Denies: Femoral-Popliteal Bypass Graft, Cardiac Catheterization, Cardiac Surgery, Carotid Endarterectomy, Internal Defibrillator, Vascular Access Devices Thoracic Surgeries: Patient denies;: Kidney (Renal Surgery), Lithotripsy, Nephrectomy, Organ Transplant, Lobectomy Neurologic Surgeries: Patient denies: Brain Aneurysm, Cerebral Hemorrhage, Neurologic Surgery HEENT Surgeries: Surgical HX of: Tonsilectomy & Adenoidectomy Patient denies: Carotid Endarterectomy, Eye Surgery Abdominal Surgeries: Surgical HX of: Abdominal Surgery, Appendectomy, Cholecystectomy, Colonoscopy, EGD Patient denies: Gastric Bypass Surgery, Hernia Repair, Splenectomy Reproductive Surgeries: Surgical HX of;: Hysterectomy Patient denies;: Cystoscopy, Genitourinary Surgery Orthopedic Surgeries: Surgical HX of;: Orthopedic Surgery (shoulder surgery on both shoulders) - Family History Family History: Reports;: Family Cancer (mother-breast ca) Denies;: Family Anesthesia Reaction, Family Diabetes, Family Heart Disease, Family Hypertension, Family Psychiatric Problems, Family Stroke - Social History Smoking Status: Former smoker Frequency of Alcohol Use: None Type of Drug Use: Marijuana Review of Systems Constitutional: no anorexia, no chills, no fatigue, no fever(s) Gastrointestinal: no abdominal pain, no bloating, no change in bowel habits, no cramping Genitourinary: no abnormal vaginal bleeding, no flank pain Exam - Vital Signs Vital signs: Period Temp Pulse Resp BP Sys/Rod Pulse Ox Last 24 Hr 97.2 F-98.2 F 76-97 12-20 114-162/50-82 95-100 - General Appearance General appearance: well-developed, well-nourished EENT: ATNC Neck: supple Respiratory: clear Cardiology: no edema, regular rate, regular rhythm Gastrointestinal: normoactive bowel sounds, no tenderness, no guarding Neurologic: alert and oriented x3 Musculoskeletal: no deformities, no clubbing Results - Labs CBC & BMP: 01/09/17 05:31 01/09/17 05:31 Assessment and Plan (1) Pneumonia Status: Acute Assessment and plan: Currently on antibiotic therapy Current Visit: No (2) COPD with exacerbation Status: Acute Current Visit: No (3) History of breast cancer Status: Acute Current Visit: Yes (4) Hyperkalemia Status: Acute Current Visit: Yes (5) Diabetes mellitus Status: Chronic Assessment and plan: We will like to hold Januvia at this time. We'll repeat BMP this afternoon. Current Visit: Yes Qualifiers: Diabetes mellitus type: type 2 Chronic kidney disease stage: stage 3 ( moderate)
[2017-01-09] MEDS: AMINOPHYLLINE 500 MG in SODIUM CHLORIDE 0.9% 480 ML IV SCH (17:23)
[2017-01-09 18:10] LABS: Calcium 8.5 MG/DL (8.5-10.1); Osmolality,Calculated 309.7 MOS/KG (273-304); Potassium 5.7 MMOL/L (3.5-5.1)
--- NOTE | 2017-01-09 18:32 | Ultrasound Report ---
US renal Bilateral Indication: Elevated BUNs/creatinine. Comparison: 07/31/2016. Technique: Multiple longitudinal and transverse real-time sonographic images of the kidneys were obtained. Findings: The right kidney measures 5.7 x 2.3 x 2.4 cm, and the left kidney measures 10.4 x 4.2 x 4.9 cm. There is no evidence of nephrolithiasis or abnormal perinephric fluid collections. Renal cortical echogenicity is increased. There is also suggestion of cortical thinning bilaterally, more prominent on the right. There is no hydronephrosis. A small simple appearing cyst is noted at the upper pole left kidney measuring 1.7 cm maximum dimension. There is no evidence of surrounding ascites. Ultrasound images were captured and stored. IMPRESSION: Atrophic right kidney. No hydronephrosis. Findings suggestive of chronic medical renal disease. PROCEDURE INTERPRETED AT [facility] DEPARTMENT OF RADIOLOGY Final Report Signed by: Mak Barrow
[2017-01-09] MEDS: LEVOFLOXACIN INJ 250 MG in PREMIX 1 EACH IV SCH (18:57)
[2017-01-09] MEDS: INSULIN GLARGINE 100 UNIT/ML SUBCUT SCH (21:34)
[2017-01-09] MEDS: ROSUVASTATIN 10 MG TABLET PO SCH (21:36)
[2017-01-10] MEDS: SODIUM CHLORIDE 0.45% 1,000 ML IV SCH ×2 (01:14→13:03)
[2017-01-10] MEDS: CLINDAMYCIN INJ 300 MG in PREMIX 1 EACH IV SCH ×3 (01:14→16:44)
[2017-01-10 07:13] LABS: Calcium 8.4 MG/DL (8.5-10.1); Osmolality,Calculated 302.4 MOS/KG (273-304); Potassium 4.6 MMOL/L (3.5-5.1)
[2017-01-10] MEDS: ALBUTEROL/IPRATROPIUM 3 ML NEB RESP TX SCH ×4 (07:26→19:14)
--- NOTE | 2017-01-10 07:39 | XRay Report ---
XR chest 2V Indication: COPD Comparison: 07 January 2017 Findings: The heart and mediastinum are normal in size and configuration. The pulmonary vascularity is normal in caliber. Lung volumes are increased with prominent bronchial markings. Left upper lobe density is similar to previous exam. No other lung infiltrates, effusions, pneumothorax or other abnormality is demonstrated. Impression: No significant changes. PROCEDURE INTERPRETED AT [facility] DEPARTMENT OF RADIOLOGY Final Report Signed by: Dr. Remigio Lemos
[2017-01-10] MEDS: INSULIN LISPRO 100 UNIT/ML SUBCUT SCH ×4 (08:43→21:02)
[2017-01-10] MEDS: FUROSEMIDE 40 MG/4 ML VIAL IV SCH ×3 (08:43→21:03)
[2017-01-10] MEDS: methylPREDNISolone SOD SUC 40 MG/1 ML VIAL IV SCH ×2 (08:43→09:30)
[2017-01-10] MEDS: METOPROLOL SUCCINATE XL 25 MG TABLET PO SCH (08:44)
[2017-01-10] MEDS: MULTIVITAMIN (BEROCCA) TABLET PO SCH (08:44)
[2017-01-10] MEDS: GABAPENTIN 300 MG CAPSULE PO SCH ×3 (08:44→21:04)
[2017-01-10] MEDS: NICOTINE 14 MG/24 HR PATCH TRANSDERM SCH (08:44)
[2017-01-10] MEDS: COLCHICINE 0.6 MG TABLET PO SCH (08:44)
[2017-01-10] MEDS: ANASTROZOLE 1 MG TABLET PO SCH (08:44)
[2017-01-10] MEDS: hydrALAZINE 25 MG TABLET PO SCH ×2 (08:44→21:04)
[2017-01-10] MEDS: CHOLECALCIFEROL 1,000 UNIT TABLET PO SCH (08:44)
[2017-01-10] MEDS: risperiDONE 0.5 MG TABLET PO SCH ×2 (08:44→21:04)
[2017-01-10] MEDS: FAMOTIDINE 20 MG TABLET PO SCH ×2 (08:45→21:04)
[2017-01-10] MEDS: CYCLOBENZAPRINE 10 MG TABLET PO SCH ×3 (08:45→21:04)
[2017-01-10] MEDS: MONTELUKAST 10 MG TABLET PO SCH ×2 (08:45→21:04)
[2017-01-10] MEDS: ASPIRIN EC 81 MG TABLET PO SCH (08:45)
[2017-01-10] MEDS: CETIRIZINE 10 MG TABLET PO SCH (08:45)
[2017-01-10] MEDS: LEVOTHYROXINE 100 MCG TABLET PO SCH (08:45)
[2017-01-10] MEDS: THEOPHYLLINE ER (24 HR) 400 MG CAPSULE PO SCH (08:45)
[2017-01-10] MEDS: PANTOPRAZOLE 40 MG TABLET PO SCH (08:45)
--- NOTE | 2017-01-10 10:02 | Pulmonology Progress Note ---
Pulmonary - PN: Subj Interval history: Jose Elias Pires, ANP-BC, GNP-BC, acting as scribe for Dr. Wilbur Marina Mrs. Crowe is a 66 year old white female who was referred from [facility]. At the time of admission, our impressions were: #1: Acute exacerbation of COPD refractory to OP treatment #2: Acute bronchitis with bronchospasm #3: Hypertension. Previous nephrectomy. Chronic renal failure. #4: Diabetes mellitus #5: COPD #6: Tobacco abuse #7: History of breast cancer on the left; s/p lumpectomy #8: Hx of diverticulosis/diverticulitis #9: Leukocytosis #10: See past history. Hypothyroidism. Cholecystectomy. Shoulder surgery. Appendectomy. Partial colon resection for stricture. Obstructive sleep apnea. 01/09/2017. Patient is nearly wheeze free. Her pulmonary status is markedly improved. On today's x-ray there is a small abnormality in the left upper lung. It is possible this is an infiltrate mixed in with the areas of calcification. Always have to consider that this may cuff turner to be a "popcorn " lesion often seen with hamartomas. Patient has a long history of elevated potassiums. Earlier during this admission she responded to Kayexalate. Potassium is up to 6.7 today and I have asked renal to see her. This patient has only one kidney. Sodium is 147. Chloride is 115. White count is 13,675 segs. H&H 11.6/39.3. Protein and albumin of previously been low. Urine shows no evidence of infection. Theophylline on 20 mg of Aminophyllin per hour is 4.8. Her case this is therapeutic because she is no longer wheezing. I again talked to the patient today about stopping smoking. Based on her answers and attitude I do not think she plans to stop. Jose Elias Pires nurse practitioner was present. Depending on what is found with the patient's height hyperkalemia she might be ready for discharge tomorrow or the next day. We will follow-up chest x-ray tomorrow. 01/10/17. No family was present on rounds today. The patient was seen in nephrology consultation yesterday by Dr. Mejias. His note has been reviewed and we appreciate his assistance. The Januvia has been held. She is on her regular insulin as well as sliding scale. We will watch this closely. She was given kayexelate yesterday and today's potassium is 4.6. Creatinine is stable at 2.20. Cold agglutinins were negative. Legionella is pending. Medications have been reviewed. We made no changes today. Labs have been reviewed. Creatinine 2.20, BUN 47, NA+ 147, K+ 4.6, Ca+ 8.4; theophylline level is 6.1. Exam (Progress Note) - Constitutional Vitals: Period Temp Pulse Resp BP Sys/Rod Pulse Ox Last 24 Hr 97.2 F-97.9 F 76-92 12-20 134-157/54-77 95-99 Exam: Chest is wheeze free Heart no gallop Abd is obese, but nontender and nondistended; BS positive x 4 Ext with nothing to suggest acute DVT Psych oriented x 3 Neuro long tract motor function is intact Plan: Watch glucoses closely. She is on Solumedrol 40mg IV daily. Continue present treatment. We hope to be able to discharge her home tomorrow. Results - Labs CBC & BMP: 01/09/17 05:31 01/10/17 05:47
[2017-01-10] MEDS: LEVOFLOXACIN INJ 250 MG in PREMIX 1 EACH IV SCH (17:57)
--- NOTE | 2017-01-10 20:53 | Nephrology Progress Note ---
Nephrology - PN: Subj Interval history: The patient is resting. Seems more comfortable today. Serum potassium level is improved at 4.6. Creatinine is stable at 2.2. Check BMP in a.m. Exam (PN)-Nephrology - Vital Signs Vital signs: Period Temp Pulse Resp BP Sys/Rod Pulse Ox Last 24 Hr 97.2 F-98.2 F 71-95 16-20 133-155/54-77 94-100 - General Appearance General appearance: well-developed, well-nourished EENT: ATNC Neck: supple Respiratory: clear Cardiology: regular rate, regular rhythm Gastrointestinal: normoactive bowel sounds, no tenderness Integumentary: no rash Musculoskeletal: no clubbing Psychiatric: mood/affect appropriate - Lab 01/09/17 05:31 01/10/17 05:47 Most recent lab results Calcium 8.4 MG/DL (8.5-10.1) L 01/10/17 05:47 Magnesium 1.7 MG/DL (1.8-2.4) L 01/10/17 05:39 Assessment and Plan (1) Pneumonia Status: Acute Assessment and plan: Currently on antibiotic therapy Current Visit: No (2) COPD with exacerbation Status: Acute Current Visit: No (3) History of breast cancer Status: Acute Current Visit: Yes (4) Hyperkalemia Status: Acute Current Visit: Yes (5) Diabetes mellitus Status: Chronic Assessment and plan: We will like to hold [employer] at this time. Current Visit: Yes Qualifiers: Diabetes mellitus type: type 2 Chronic kidney disease stage: stage 3 ( moderate)
[2017-01-10] MEDS: INSULIN GLARGINE 100 UNIT/ML SUBCUT SCH (21:03)
[2017-01-10] MEDS: ROSUVASTATIN 10 MG TABLET PO SCH (21:04)
[2017-01-11] MEDS: CLINDAMYCIN INJ 300 MG in PREMIX 1 EACH IV SCH ×2 (00:05→10:11)
[2017-01-11] MEDS: SODIUM CHLORIDE 0.45% 1,000 ML IV SCH ×2 (00:05→07:59)
[2017-01-11] MEDS: FUROSEMIDE 40 MG/4 ML VIAL IV SCH (06:19)
[2017-01-11] MEDS: LEVOTHYROXINE 100 MCG TABLET PO SCH (06:20)
[2017-01-11] MEDS: ALBUTEROL/IPRATROPIUM 3 ML NEB RESP TX SCH (07:19)
[2017-01-11 07:22] LABS: Calcium 8.3 MG/DL (8.5-10.1); Osmolality,Calculated 303.6 MOS/KG (273-304); Potassium 4.8 MMOL/L (3.5-5.1)
[2017-01-11] MEDS: INSULIN LISPRO 100 UNIT/ML SUBCUT SCH ×2 (07:58→11:21)
[2017-01-11] MEDS: MULTIVITAMIN (BEROCCA) TABLET PO SCH (08:27)
[2017-01-11] MEDS: CHOLECALCIFEROL 1,000 UNIT TABLET PO SCH (08:28)
[2017-01-11] MEDS: ASPIRIN EC 81 MG TABLET PO SCH (08:28)
[2017-01-11] MEDS: GABAPENTIN 300 MG CAPSULE PO SCH (08:28)
[2017-01-11] MEDS: NICOTINE 14 MG/24 HR PATCH TRANSDERM SCH (08:28)
[2017-01-11] MEDS: PANTOPRAZOLE 40 MG TABLET PO SCH (08:28)
[2017-01-11] MEDS: CETIRIZINE 10 MG TABLET PO SCH (08:28)
[2017-01-11] MEDS: risperiDONE 0.5 MG TABLET PO SCH (08:28)
[2017-01-11] MEDS: METOPROLOL SUCCINATE XL 25 MG TABLET PO SCH (08:28)
[2017-01-11] MEDS: ANASTROZOLE 1 MG TABLET PO SCH (08:29)
[2017-01-11] MEDS: COLCHICINE 0.6 MG TABLET PO SCH (08:29)
[2017-01-11] MEDS: MONTELUKAST 10 MG TABLET PO SCH (08:29)
[2017-01-11] MEDS: THEOPHYLLINE ER (24 HR) 400 MG CAPSULE PO SCH (08:29)
[2017-01-11] MEDS: hydrALAZINE 25 MG TABLET PO SCH (08:29)
[2017-01-11] MEDS: CYCLOBENZAPRINE 10 MG TABLET PO SCH (08:29)
[2017-01-11] MEDS ORDERED: FAMOTIDINE 20 MG TABLET PO SCH (09:00)
[2017-01-11 09:23] VITALS: BP 156/63
--- NOTE | 2017-01-11 09:28 | Nephrology Progress Note ---
Nephrology - PN: Subj Interval history: Patient is in a good mood today continues to do well. Serum creatinine is noted to 0.2 which is stable. No new recommendations at this time. Patient to follow outpatient basis in 2 weeks with a BMP. Exam (PN)-Nephrology - Vital Signs Vital signs: Period Temp Pulse Resp BP Sys/Rod Pulse Ox Last 24 Hr 97 F-98.3 F 78-97 16-20 127-156/50-73 94-100 - General Appearance General appearance: well-developed, well-nourished EENT: ATNC Neck: supple Respiratory: clear Cardiology: regular rate, regular rhythm Gastrointestinal: normoactive bowel sounds, no tenderness Neurologic: alert and oriented x3 Musculoskeletal: no clubbing - Lab 01/09/17 05:31 01/11/17 06:38 Most recent lab results Calcium 8.3 MG/DL (8.5-10.1) L 01/11/17 06:38 Magnesium 1.7 MG/DL (1.8-2.4) L 01/10/17 05:39 Assessment and Plan (1) Pneumonia Status: Acute Assessment and plan: Currently on antibiotic therapy Current Visit: No (2) COPD with exacerbation Status: Acute Current Visit: No (3) History of breast cancer Status: Acute Current Visit: Yes (4) Hyperkalemia Status: Acute Current Visit: Yes (5) Diabetes mellitus Status: Chronic Assessment and plan: We will like to hold Georgina Goodmanuvia at this time. Current Visit: Yes Qualifiers: Diabetes mellitus type: type 2 Chronic kidney disease stage: stage 3 ( moderate)
[2017-01-11] MEDS: methylPREDNISolone SOD SUC 40 MG/1 ML VIAL IV SCH (10:11)
--- NOTE | 2017-01-11 12:06 | Pulmonology Progress Note ---
Pulmonary - PN: Subj Interval history: Jose Elias Pires, ANP-BC, GNP-BC, acting as scribe for Dr. Wilbur Marina Mrs. Crowe was seen today along with her and Felicity Marques RN. The patient is markedly improved from a respiratory standpoint. She denies any increased shortness of breath, productive cough, or wheeze. On chest exam she is wheeze free. She will not requiring any steroids at discharge. Creatinine is stable at 2.20. Potassium has improved to 4.8. She will remain off the Januvia. We will schedule her to follow-up with Dr. Hamilton in approximately 2-3 weeks with a BMP. Medications have been reviewed. Labs have been reviewed. Creatinine 2.20, BUN 49, sodium 146, potassium 4.8, theophylline level 4.5 Exam (Progress Note) - Constitutional Vitals: Period Temp Pulse Resp BP Sys/Rod Pulse Ox Last 24 Hr 97 F-98.3 F 87-97 17-20 127-156/50-71 95-100 Exam: Chest is wheeze free Heart no gallop Abd is obese, but nontender and nondistended; BS positive x 4 Ext with nothing to suggest acute DVT Psych oriented x 3 Neuro long tract motor function is intact Plan: The patient has met maximum hospital benefit has requested to be discharged today. We agreed that she cannot be safely managed at home. Please see my discharge note for more information. Results - Labs CBC & BMP: 01/09/17 05:31 01/11/17 06:38 Specialty Discharge - Follow Up or Referrals Follow up with: Real Mejias Jr., MD [Physician] - 01/18/17 9:00 am (with a BMP)
--- NOTE | 2017-01-11 12:13 | Discharge Summary ---
Hospital Course - Hospital Course Hospital Course: Jose Elias Pires, ANP-BC, GNP-BC, acting as scribe for Dr. Wilbur Marina Mrs. Crowe is a 66-year-old white female from [place], [place]. [facility] by Dr. Maurice Henao. She saw Dr. Henao on 01/02/2017 with complaints of increased shortness of breath and wheeze. The patient was diagnosed with acute bronchitis and bronchospasm. She was instructed to call if she had no improvement. She stated that over the course of the week she had become progressively more short of breath. She denied dyspnea on exertion and wheeze. She denied any significant sputum production. She stated she was not able to mobilize the secretions. Because of her advanced age, multiple comorbidities, acute illness, and the fact that she was and outpatient treatment failure, she was admitted for further evaluation and care. She was started on IV antibiotics with Levaquin and Cleocin. She was also started on IV Solu-Medrol, IV Aminophyllin, and oral Singulair. Sputum for Gram stain, culture, and sensitivity were ordered at admission. However, the patient was never able to produce sputum for testing. Nonetheless with these medications the patient has markedly improved. She is now wheeze free. She will not require any further steroids at discharge. She has been converted to oral theophylline and will need to continue this and the Singulair at discharge. At admission the patient was noted to have renal failure with a creatinine of 2.00. This tries to have 2.3. She was also noted to have significant hyperkalemia with potassium as high as 6.7. She was seen in nephrology consultation by Dr. Mejias. Kayexalate was given. Januvia was discontinued. Over time, the patient's creatinine has remained stable and her potassium has now normalized. She will follow-up with Dr. Mejias in approximately 2-3 weeks with a [facility]. At discharge, white count is 13,600 with 74.5% segs, 17.6% lymphs, and 5.2% monos; H&H 11.6/39.3; platelet count 228,000; creatinine 2.20, BUN 49, sodium 146, potassium 4.8, magnesium 1.7, theophylline 4.5. Blood cultures grew no organisms. Cold agglutinins were negative. Legionella was negative. For more information regarding Mrs. Crowe's past medical history, surgical history, family history, social history, admit labs, admit x-rays, and admit exam, please see my admission note dated 01/06/2017. Impression: #1: Acute exacerbation of COPD refractory to OP treatment--- resolved #2: Acute bronchitis with bronchospasm--- resolved #3: Hypertension #4: Diabetes mellitus #5: COPD #6: Tobacco abuse. Note, we had serious talk with the patient about the absolute need for cessation. She did not seem receptive to the idea. #7: History of breast cancer on the left; s/p lumpectomy #8: Hx of diverticulosis/diverticulitis #9: Leukocytosis--- resolved #10: Chronic renal failure with hyperkalemia; most likely exacerbated by Januvia #11: See past history Plan: Arimidex 1 mg daily, baby aspirin daily, Tessalon 200 mg 3 times daily as needed, Zyrtec 10 mg daily, vitamin D3 2000 units daily, Colcrys 0.6 mg daily, Flexeril 10 mg 3 times daily, Pepcid 20 mg daily, Lasix 40 mg 3 times daily, Neurontin 300 mg 3 times daily, Mucinex 600 mg twice daily, hydralazine 25 mg twice daily, Lantus 20 units at bedtime, Synthroid 100 g daily, Toprol-XL 25 mg daily, Singulair 10 mg twice daily, NicoDerm CQ 14 mg patch daily, Protonix 40 mg daily, Risperdal 0.5 mg twice daily, Crestor 10 mg at bedtime, theophylline 400 mg daily, Berocca one daily, Elavil 25 mg at bedtime, Advair 250/50 1 puff twice daily, and Combivent inhaler 4 times daily as needed. She will follow-up with Dr. Mejias in approximately 2-3 weeks with a BMP. She will follow up with Dr. Henao the same day. She could be seen sooner if needed. Specialty Discharge - Follow Up or Referrals Follow up with: Real Mejias Jr., MD [Physician] - 01/18/17 9:00 am (with a BMP) Maurice Henao MD [Primary Care Provider] - (Same day as Dr. Mejias) Discharge Plan - Discharge Data Disposition: Disch To Home/Self Care Condition at Discharge: Stable - Discharge Medications New Furosemide Tab [Lasix Tab] 40 mg PO TID #90 tablet Montelukast Tab [Singulair Tab] 10 mg PO BID #60 tablet Nicotine 14 mg/24 Hr Patch [Nicoderm CQ 14 mg/24 hr Patch] 1 patch TRANSDERM DAILY #30 patch Theophylline ER Cap (24 Hr) [Sunil-24] 400 mg PO Q24H #30 capsule Continue B Complex & C No.20/Folic Acid [Nephrocaps Softgel] 1 mg PO DAILY Metoprolol Succinate Xl [Toprol Xl] 25 mg PO DAILY Insulin Glargine,Hum.rec.anlog [Lantus SoloStar] 20 unit SUBCUT BEDTIME Hydralazine HCl 25 mg PO BID W/MEALS Gabapentin 300 mg PO TID Rosuvastatin [Crestor] 10 mg PO BEDTIME Aspirin EC Tab 81 mg PO DAILY Anastrozole 1 mg PO DAILY Fluticasone/Salmeterol 250-50 [Advair 250-50] 1 puff INH BID Cetirizine Tab [ZyrTEC Tab] 10 mg PO DAILY Cholecalciferol (Vitamin D3) [Vitamin D3] 2,000 unit PO DAILY risperiDONE [Risperidone] 0.5 mg PO BID Levothyroxine Tab [Synthroid Tab] 100 mcg PO DAILY@0700 Propranolol HCl [Propranolol Tab] 20 mg PO BID Promethazine Tab [Phenergan Tab] 25 mg PO Q6H PRN PRN Reason: Nausea Amitriptyline [Elavil] 25 mg PO BEDTIME Pantoprazole Tab [Protonix Tab] 40 mg PO DAILY Benzonatate 100 - 200 mg PO Q8H PRN PRN Reason: Cough Cholecalciferol (Vitamin D3) [Vitamin D3 Chew Tab] 1,000 unit PO DAILY Ipratropium/Albuterol Inhaler [Combivent Respimat Inhaler] 1 puff INH DAILY Discontinued sitaGLIPtin [Januvia] 100 mg PO DAILY Fluticasone/Salmeterol 250-50 [Advair 250-50] 1 puff INH BID - Follow Up or Referral Follow Up: Real Mejias Jr., MD [Physician] - 01/18/17 9:00 am (with a BMP) - Forms/Instructions Instructions: Viral Pneumonia (DC), Chronic Obstructive Pulmonary Disease (DC) , Hyperkalemia (DC) Exam - Constitutional Vitals: Period Temp Pulse Resp BP Sys/Rod Pulse Ox Last 24 Hr 97 F-98.3 F 87-97 17-20 127-156/50-71 95-100 Discharge Results Procedures and tests throughout hospitalization: Pending Orders 01/06/17 12:18 Sputum Culture and Gram Stain Routine 01/06/17 14:01 Blood Culture Routine 01/12/17 04:00 Theophylline IN AM 01/13/17 04:00 Theophylline IN AM Labs on day of discharge: Labs from last 24 hours 01/11/17 01/11/17 01/11/17 07:54 06:38 06:38 Sodium 146 H Potassium 4.8 Chloride 108 H Carbon Dioxide 29 Anion Gap 13.8 BUN 49 H Creatinine 2.20 H GFR Calculation 27 BUN/Creatinine Ratio 22.00 H Glucose 123 H POC Glucose 125 H Calculated Osmolality 303.6 Calcium 8.3 L Theophylline 4.5 L Legionella pneumophila Ab 01/10/17 01/10/17 01/10/17 19:10 15:08 11:25 Sodium Potassium Chloride Carbon Dioxide Anion Gap BUN Creatinine GFR Calculation BUN/Creatinine Ratio Glucose POC Glucose 292 H 216 H 102 Calculated Osmolality Calcium Theophylline Legionella pneumophila Ab 01/06/17 14:01 Sodium Potassium Chloride Carbon Dioxide Anion Gap BUN Creatinine GFR Calculation BUN/Creatinine Ratio Glucose POC Glucose Calculated Osmolality Calcium Theophylline Legionella pneumophila Ab Negative Preliminary micro results at discharge 01/06/17 14:01 Blood Culture - Preliminary Blood No growth at 3 days 01/06/17 14:01 Blood Culture - Preliminary Blood No growth at 3 days DS: Provider Date of admission: 01/06/17 13:15 Primary care physician: Maurice Henao MD Attending physician on admission: Wilbur Marina MD Consults: 01/06/17 13:36 Consult to Pharmacy [CONS] Routine Reason for Pharmacy Consult: Adjust Meds Renal Funct 01/09/17 07:12 Consult to Physician [CONS] Routine Comment: Consulting Provider: Consult to Specialist Group: Nephrology When should Consulting Provider be notified: Now Person Notified: Susy Date Notified: 01/09/17 Time Notified: 10:14 Consult Notification Comment: Discharging clinician: BESSY Samuel
== END 2017-01-11 13:36 | disposition home or self-care (01) | DRG 190 ==
LOC: N.5E 13:15
PROVIDERS: ADMIT Internal Medicine Pulmonary Disease; ATTEND Internal Medicine Pulmonary Disease

== ENCOUNTER 2017-05-30 12:20 | Inpatient (IN) ==
[2017-05-30] MEDS ORDERED: ALBUTEROL 2.5 MG/3 ML NEB RESP TX PRN (12:54)
[2017-05-30] MEDS ORDERED: LEVOFLOXACIN INJ 750 MG in PREMIX 1 EACH IV SCH (16:00)
--- NOTE | 2017-05-30 16:57 | Hospitalist History & Physical ---
<Marcela Bermanda - Last Filed: 05/30/17 16:50> Assessment and Plan (1) COPD with exacerbation Status: Acute Assessment and plan: The patient has required multiple hospitalizations in the past for exacerbation. The patient is a current smoker however she reports that she has drastically reduced her nicotine use to 1 pack a day. Discussed with patient the need to sustain from nicotine use. Nicotine patch offered for use during the clinical encounter. We will start empiric antibiotic coverage, inhaled bronchodilators, and intravenous corticosteroids. We will obtain chest x-ray in a.m. and consult pulmonary to evaluate and assist during the clinical encounter. Current Visit: No (2) Diabetes mellitus Status: Chronic Assessment and plan: The patient has a known history of diabetes mellitus. We will obtain hemoglobin A1c, start Accu-Cheks with sliding scale coverage, and consult photogrammetric compilation specialist. Current Visit: No Qualifiers: Diabetes mellitus type: type 2 Chronic kidney disease stage: stage 3 ( moderate) History of Present Illness Chief complaint: Shortness of breath History of present illness: This is a very pleasant 66-year-old chronically ill female that presented to [facility] as a direct admission from Dr. Maurice Henao's office this afternoon for the evaluation of shortness of breath. Patient has a local history significant for chronic obstructive pulmonary disease, breast cancer, left femur fracture, anemia, insulin-dependent diabetes, obstructive sleep apnea, and nicotine addiction. Patient has surgical history significant for adenoidectomy, cholecystectomy, hysterectomy, tonsillectomy, colon stricture resection, and left leg femur repair. The patient reported the onset of symptoms 2 days prior to admission. The patient reported similar episodes in the past which were generally attributed to chronic obstructive pulmonary exacerbation. The patient reports that she is a current smoker however reports that she has "cut down from 4 packs a day to 1 pack a day". The patient reported increase in dyspnea however the patient is normally extremely dyspneic upon minimal exertion. She reported a productive cough at times and describes the production as "saucedo and clear in color". The patient has been experiencing intermittent chest pain however she reports that it only occurs when she coughs. The patient became concerned and presented to Dr. Maurice Henao's office this morning for evaluation. The patient was assessed and labs were obtained. I was notified by Dr. Maurice Henao's staff regarding the patient's need for inpatient hospitalization for a suspected chronic obstructive pulmonary disease exacerbation. The patient was subsequently admitted to [facility] as a direct admit for further evaluation and continuation of care. Due to the severity of the patient's chronic obstructive pulmonary disease, we will consult pulmonary to evaluate and assist during the clinical encounter. The patient's home medications have been reviewed and reconciled. The patient's CODE STATUS has been discussed; the patient is a FULL CODE. Home Medications Medication Instructions Recorded Confirmed Type Anastrozole 1 mg PO DAILY 07/29/16 04/06/17 History Aspirin EC Tab 81 mg PO DAILY 07/29/16 04/06/17 History Cetirizine Tab [ZyrTEC Tab] 10 mg PO DAILY 07/29/16 04/06/17 History Cholecalciferol (Vitamin D3) 2,000 unit PO DAILY 07/29/16 04/06/17 History [Vitamin D3] Fluticasone/Salmeterol 250-50 1 puff INH BID 07/29/16 04/06/17 History [Advair 250-50] Gabapentin 300 mg PO TID 07/29/16 04/06/17 History Hydralazine HCl 25 mg PO BID W/MEALS 07/29/16 04/06/17 History Levothyroxine Tab [Synthroid Tab] 100 mcg PO DAILY@0700 07/29/16 04/06/17 History Metoprolol Succinate Xl [Toprol Xl] 25 mg PO DAILY 07/29/16 04/06/17 History Rosuvastatin [Crestor] 10 mg PO BEDTIME 07/29/16 04/06/17 History Amitriptyline [Elavil] 25 mg PO BEDTIME 08/25/16 04/06/17 History Benzonatate 100 - 200 mg PO Q8H PRN 08/25/16 04/06/17 History Ipratropium/Albuterol Inhaler 1 puff INH DAILY 08/25/16 04/06/17 History [Combivent Respimat Inhaler] Pantoprazole Tab [Protonix Tab] 40 mg PO DAILY 08/25/16 04/06/17 History Promethazine Tab [Phenergan Tab] 25 mg PO Q6H PRN 08/25/16 04/06/17 History Nicotine 14 mg/24 Hr Patch 1 patch TRANSDERM DAILY #30 patch 01/11/17 04/06/17 Rx [Nicoderm CQ 14 mg/24 hr Patch] Eletriptan HBr [Relpax] 40 mg PO DIRECTED 04/06/17 04/06/17 History Rizatriptan Benzoate [Rizatriptan] 10 mg PO DIRECTED 04/06/17 04/06/17 History Albuterol Liquid [Proventil Liquid] 1 mg PO BID #150 mls 04/10/17 Rx Insulin Glargine,Hum.rec.anlog 25 unit SUBCUT BEDTIME #0 04/10/17 04/06/17 Rx [Lantus SoloStar] Magnesium Oxide 400 mg PO BID #60 tablet 04/10/17 Rx Montelukast Tab [Singulair Tab] 10 mg PO DAILY #60 tablet 04/10/17 04/06/17 Rx Theophylline ER Tab 300 mg PO BID W/MEALS #60 tablet 04/10/17 Rx predniSONE TAB [PredniSONE] 10 mg PO DIRECTED #14 tablet 04/10/17 Rx Allergies Allergy/AdvReac Type Severity Reaction Status Date / Time codeine Allergy Severe Difficulty Verified 08/05/16 00:01 Breathing hydrocodone Allergy Severe Difficulty Verified 08/05/16 00:00 Breathing Penicillins Allergy Unknown Verified 08/05/16 00:03 morphine Allergy HIVES Verified 07/24/16 18:34 Medical,Surgical,& Family Hx - Medical History Cardio: History of: Hypertension No history of: Aneurysm, Cardiac Dysrhythmia, Cerebrovascular Disease, Congenital Heart Disease, CHF, CAD, IA, Pacemaker, PVD, Valvular Heart Disease, Cardiovascular Problems Psychological: No history of: Anxiety Disorders, ADHD, Behavior Problems, Bipolar Disorder, Depression, Previous Suicide Attempt, Psychiatric/Substance Abuse Tx, Schizophrenia, Violent Behavior, Psychiatric Problems Neurology: History of: Migraine, Seizures (last one january 2016) No history of: Brain Aneurysm, Cerebral Hemorrhage, Cerebrovascular Accident , Cerebral Palsy, Dementia, Multiple Sclerosis, Parkinson's Disease, Peripheral Neuropathy, TIA, Vertigo, Neurologocal Cancer HEENT: No history of: Ear Problem, Eye Problem, Dental Problems, Glaucoma, Oral Cancer Endocrine: History of: Diabetes Mellitus (IDDM), Diabetes Mellitus (NIDDM), Thyroid Disorder No history of: Dyslipidemia Rheumatology: History of;: Fibromyalgia No history of;: Gout, Myasthenia Gravis, Psoriasis, Rheumatoid Arthritis, Sjogrens, Systemic Lupus Erythematosus, Rheumatological Problems Respiratory: History of: Asthma, Bronchitis, COPD, Intubation (January 2016 they gave morphine and pt was allergic to it, went into resp dis), Pneumonia No history of: Obstructive Sleep Apnea, Pulmonary Embolism, Pulmonary Hypertension, Lung Cancer, Respiratory Problems Renal: No history of: Renal (Kidney) Cancer, Dialysis, Renal Failure, Renal Problems Genitourinary: No history of: Kidney Stones (left kidney functions right kidney never grew from ), Recurring Urinary Tract Infections, Genitourinary Cancer, Problems Gastrointestinal: History of: Diverticulitis/ Diverticulosis No history of: Bowel Obstruction, Clostridium Difficile, Crohn's Disease, Esophageal Varices, GERD, Gastrointestinal Bleed, Hemorrhoids, Hematochezia, Hepatitis, Liver Problems, Pancreatitis, Polyps, Ulcerative Colitis, Gastrointestinal Cancer, GI Problems Musculoskeletal: History of: Back/Neck Problems (broken vertebra) No history of: Herniated Disk, Osteoporosis, Musculoskeletal Cancer, Musculoskeletal Problems Hematology: History of: Anemia No history of: Blood Transfusion Reaction, Bleeding Problems, Clotting Problems, Sickle Cell Disease, Hematologic Cancer, Blood Disorders Reproductive: History of: Breast Cancer (2007) No history of: Abnormal Pap Smear Other: History of: Anaphylaxis (when morphine was given in 2007), Cancer ( Breast cancer (Left breast) ') No history of: Anesthesia Reactions, Eczema, HIV, Malignant Hyperthermia, MRSA, Vancomycin-Resistant Enterococci, Skin Problems - Surgical History Cardiac Surgeries: Patient Denies: Femoral-Popliteal Bypass Graft, Cardiac Catheterization, Cardiac Surgery, Carotid Endarterectomy, Internal Defibrillator, Vascular Access Devices Thoracic Surgeries: Patient denies;: Kidney (Renal Surgery), Lithotripsy, Nephrectomy, Organ Transplant, Lobectomy Neurologic Surgeries: Patient denies: Brain Aneurysm, Cerebral Hemorrhage, Neurologic Surgery HEENT Surgeries: Surgical HX of: Tonsilectomy & Adenoidectomy Patient denies: Carotid Endarterectomy, Eye Surgery Abdominal Surgeries: Surgical HX of: Abdominal Surgery, Appendectomy, Cholecystectomy, Colonoscopy, EGD Patient denies: Gastric Bypass Surgery, Hernia Repair, Splenectomy Reproductive Surgeries: Surgical HX of;: Hysterectomy Patient denies;: Cystoscopy, Genitourinary Surgery Orthopedic Surgeries: Surgical HX of;: Orthopedic Surgery (shoulder surgery on both shoulders x2) - Family History Family History: Reports;: Family Cancer (mother-breast ca) Denies;: Family Anesthesia Reaction, Family Diabetes, Family Heart Disease, Family Hypertension, Family Psychiatric Problems, Family Stroke - Social History Smoking Status: Former smoker Frequency of Alcohol Use: None Type of Drug Use: None 12 point system: reviewed and no additional remarkable complaints except as stated Exam - Constitutional General appearance: mild distress, over weight - Head Head exam: Present: normal inspection, normocephalic, atraumatic - Eye Eye exam: Present: EOMI, conjunctival injection Pupils: Present: DEBRA, normal accommodation - ENT ENT exam: Present: normal exam, normal external ear exam, normal oropharynx - Neck Neck exam: Present: normal inspection. Absent: lymphadenopathy, meningismus, tenderness, thyromegaly - Respiratory Respiratory exam: Present: accessory muscle use, wheezes - Cardiovascular Cardiovascular exam: Present: regular rate and rhythm. Absent: carotid bruit, diastolic murmur, gallop, JVD, rubs, systolic murmur - GI/Abdominal GI/Abdominal exam: Present: normal bowel sounds, soft. Absent: mass, tenderness - Extremities Exam Extremities exam: Present: normal inspection, normal capillary refill, full ROM. Absent: edema - Back Exam Back exam: Present: normal inspection - Neurological Exam Neurological exam: Present: alert, oriented X3, CN II-XII intact - Psychiatric Psychiatric exam: Present: normal affect, normal mood - Skin Skin exam: Present: normal color, warm, dry <Maxim Lindsey - Last Filed: 05/30/17 17:55> History of Present Illness History of present illness: Patient seen and examined along with CAN Berman. Patient with history of COPD being admitted with sob, probable copd exacerbation. Obtaining CXR. Duonebs, steroids, levaquin. Exam - Constitutional Vitals: Period Temp Pulse Resp BP Sys/Rod Pulse Ox Last 24 Hr 98.7 F 83 22 144/76 94 Results - Labs CBC & BMP: 05/30/17 16:19
[2017-05-30] MEDS ORDERED: GLUCAGON 1 MG VIAL IM PRN ×2 (17:01)
[2017-05-30] MEDS ORDERED: DEXTROSE 50% 25 GM/50 ML VIAL IV PRN ×2 (17:01)
[2017-05-30] MEDS: methylPREDNISolone SOD SUC 40 MG/1 ML VIAL IV SCH ×2 (17:27→22:45)
[2017-05-30 17:29] LABS: Basophils % 0.4 % (0.0-0.8); Eosinophils # 0.4 10*3/uL (0.0-0.87); Eosinophils % 3.9 % (0.00-10.9); Hematocrit 40.4 VOL% (35.7-47.0); Hemoglobin 13.2 GM/DL (12.0-16.0); Immature Granulocytes % 1.4 %; Immature Granulocytes Absolute 0.15 #; Lymphocytes # 2.6 10*3/uL (1.4-4.0); Lymphocytes % 25.4 % (21.3-54.2); Mean Corpuscular HGB Conc 32.7 GM/DL (32-36); Mean Corpuscular Hemoglobin 30 PG (27-34); Mean Corpuscular Volume 91.8 FL (87-102); Mean Platelet Volume 9.2 FL (9.6-12.0); Monocytes # 0.7 10*3/uL (0.11-0.8); Monocytes % 6.3 % (1.7-12.7); Neutrophils # 6.5 10*3/uL (1.4-7.4); Neutrophils % 62.6 % (38.7-73.9); Platelet Count 259 T/CUMM (130-400); Red Cell Distribution Width 14.5 % (9.3-17.3); White Blood Count 10.4 T/CUMM (4-12)
[2017-05-30 17:56] LABS: Alanine Aminotransferase 32 U/L (13-56); Albumin 2.8 G/DL (3.4-5.0); Alkaline Phosphatase 187 U/L (45-117); Aspartate Amino Transferase 32 U/L (0-37); Bilirubin,Total < 0.39 MG/DL (0.2-1.0); Blood Urea Nitrogen 24 MG/DL (7-18); Calcium 8.6 MG/DL (8.5-10.1); Glucose 229 MG/DL (74-106); Osmolality,Calculated 291.3 MOS/KG (273-304); Potassium 5.1 MMOL/L (3.5-5.1); Sodium 141 MMOL/L (136-145); Total Protein 5.7 G/DL (6.4-8.3)
[2017-05-30] MEDS: ALBUTEROL/IPRATROPIUM 3 ML NEB RESP TX SCH (19:07)
--- NOTE | 2017-05-30 19:11 | XRay Report ---
Portable chest. Indication: Shortness of breath. Comparison: April 06, 2017. The heart is normal in size. The lung souza are clear. No pneumothorax. No pleural effusion. Right shoulder replacement. Surgical clips in the left axilla. Degenerative changes of the left shoulder and spinal column. Impression: No acute abnormality. PROCEDURE INTERPRETED AT [facility] DEPARTMENT OF RADIOLOGY Final Report Signed by: Dr. Maria Ines Morales
[2017-05-30] MEDS: INSULIN REGULAR 100 UNIT/ML SUBCUT SCH (22:46)
[2017-05-31] MEDS: ALBUTEROL/IPRATROPIUM 3 ML NEB RESP TX SCH ×5 (00:30→20:18)
[2017-05-31] MEDS: AMITRIPTYLINE 25 MG TABLET PO SCH ×2 (01:09→22:14)
[2017-05-31] MEDS: methylPREDNISolone SOD SUC 40 MG/1 ML VIAL IV SCH ×4 (03:44→22:15)
[2017-05-31 06:34] LABS: Basophils % 0.4 % (0.0-0.8); Hematocrit 41.8 VOL% (35.7-47.0); Hemoglobin 13.7 GM/DL (12.0-16.0); Immature Granulocytes % 2.3 %; Immature Granulocytes Absolute 0.25 #; Lymphocytes % 9.1 % (21.3-54.2); Mean Corpuscular HGB Conc 32.8 GM/DL (32-36); Mean Corpuscular Hemoglobin 30 PG (27-34); Mean Corpuscular Volume 90.1 FL (87-102); Mean Platelet Volume 9.4 FL (9.6-12.0); Monocytes # 0.1 10*3/uL (0.11-0.8); Monocytes % 0.9 % (1.7-12.7); Neutrophils # 9.4 10*3/uL (1.4-7.4); Neutrophils % 87.3 % (38.7-73.9); Platelet Count 235 T/CUMM (130-400); Red Blood Count 4.64 MC/CUMM (3.8-5.5); Red Cell Distribution Width 14.2 % (9.3-17.3); White Blood Count 10.7 T/CUMM (4-12)
[2017-05-31 06:53] LABS: Alanine Aminotransferase 31 U/L (13-56); Albumin 2.8 G/DL (3.4-5.0); Alkaline Phosphatase 199 U/L (45-117); Aspartate Amino Transferase 23 U/L (0-37); Bilirubin,Total < 0.39 MG/DL (0.2-1.0); Blood Urea Nitrogen 33 MG/DL (7-18); Calcium 8.9 MG/DL (8.5-10.1); Glucose 352 MG/DL (74-106); Osmolality,Calculated 293.8 MOS/KG (273-304); Potassium 5.5 MMOL/L (3.5-5.1); Sodium 137 MMOL/L (136-145)
--- NOTE | 2017-05-31 08:02 | XRay Report ---
Exam: XR chest 2V Date: 05/31/2017 4:00 AM Indication: Shortness of breath Comparison: None Technical: PA lateral Findings: A right total shoulder prosthesis is present. The heart is normal in size. Previous surgical changes in the left axillary region and right upper quadrant. Lateral marginal osteophytes are present. Oxygen tubing is present. Mediastinum is unremarkable. Impression: 1. No overt congestive failure infiltrates or effusions 2. Previous multiple surgeries as described above involving the right shoulder left axillary region and right upper quadrant 3. Mild cardiac enlargement 4. Degenerative spondylosis change thoracic spine PROCEDURE INTERPRETED AT [facility] DEPARTMENT OF RADIOLOGY Final Report Signed by: Dr. Wilbur Cadena
[2017-05-31] MEDS: INSULIN REGULAR 100 UNIT/ML SUBCUT SCH ×4 (09:45→21:50)
--- NOTE | 2017-05-31 09:58 | Hospitalist Progress Note ---
<Finn Berman - Last Filed: 05/31/17 10:01> Assessment and Plan (1) COPD with exacerbation Status: Acute Assessment and plan: The patient has required multiple hospitalizations in the past for exacerbation. The patient is a current smoker however she reports that she has drastically reduced her nicotine use to 1 pack a day. Discussed with patient the need to sustain from nicotine use. Nicotine patch offered for use during the clinical encounter. We will start empiric antibiotic coverage, inhaled bronchodilators, and intravenous corticosteroids. We will obtain chest x-ray in a.m. and consult pulmonary to evaluate and assist during the clinical encounter. 05/31-we will continue empiric antibiotic coverage, inhaled bronchodilators, and intravenous corticosteroids. We will recheck chest x-ray in a.m. Awaiting pulmonary evaluation. Current Visit: No (2) Diabetes mellitus Status: Chronic Assessment and plan: The patient has a known history of diabetes mellitus. We will obtain hemoglobin A1c, start Accu-Cheks with sliding scale coverage, and consult rn diabetes. Current Visit: No Qualifiers: Diabetes mellitus type: type 2 Chronic kidney disease stage: stage 3 ( moderate) (3) Chronic kidney disease Status: Acute Assessment and plan: The patient has a known diagnosis of chronic kidney disease. Upon review of the patient's previous medical records; on the previous admission on April 10, 2017 BUN and creatinine was noted at 57 and 1.9; 24 and 1.9 at the time of admission on yesterday, and noted at 33/2.3 today. We will gently rehydrate and recheck in a.m. Current Visit: Yes Hospitalist: Subjective Interval history: Patient seen and examined; chart reviewed. No significant overnight events reported. Patient states "I feel better". Awaiting pulmonary evaluation. Exam - Constitutional Vitals: Period Temp Pulse Resp BP Sys/Rod Pulse Ox Last 24 Hr 96.6 F-98.7 F 75-101 18-22 144-187/76-91 92-99 General appearance: normal weight, no acute distress - Head Head exam: Present: normal inspection, normocephalic, atraumatic - Eye Eye exam: Present: EOMI, conjunctival injection Pupils: Present: DEBRA, normal accommodation - ENT ENT exam: Present: normal exam, normal external ear exam, normal oropharynx - Neck Neck exam: Present: normal inspection. Absent: lymphadenopathy, meningismus, thyromegaly - Respiratory Respiratory exam: Present: wheezes - Cardiovascular Cardiovascular exam: Present: regular rate and rhythm, tachycardia. Absent: carotid bruit, diastolic murmur, gallop, JVD, rubs, systolic murmur - GI/Abdominal GI/Abdominal exam: Present: normal bowel sounds, soft - Extremities Exam Extremities exam: Present: normal inspection, normal capillary refill, full ROM. Absent: edema - Back Exam Back exam: Present: normal inspection - Neurological Exam Neurological exam: Present: alert, oriented X3 - Psychiatric Psychiatric exam: Present: normal affect, normal mood - Skin Skin exam: Present: normal color, warm, dry Results - Labs CBC & BMP: 05/31/17 05:54 05/31/17 05:54 Lab Results: I have reviewed the past 24 hour labs <Maxim Lindsey - Last Filed: 05/31/17 16:11> Hospitalist: Subjective Interval history: Pt seen and examined independently of CAN Berman, agree with assessment and plan as documented. Not much change in patient's clinical picture today. Pulmonary started theophylline. Continue the course. Exam - Constitutional Vitals: Period Temp Pulse Resp BP Sys/Rod Pulse Ox Last 24 Hr 96.6 F-98.3 F 75-101 18-22 159-187/82-91 92-99 Results - Labs CBC & BMP: 05/31/17 05:54 05/31/17 05:54
--- NOTE | 2017-05-31 10:40 | Pulmonology Consult Note ---
History of Present Illness Chief complaint: COPD exacerbation History of present illness: Jose Elias Pires, [facility], acting as scribe for Dr. Wilbur Marina Mrs. Crowe is a 66-year-old white female from [place], [place]. She [facility] by Dr. Maurice Henao. She presented to [facility] emergency room 05/30/2017 with complaints of increased shortness of breath. She had been sent from Dr. Henao's office as a direct admit. On evaluation from Dr. Henao's office, the patient was noted to have a COPD exacerbation which had not improved with outpatient treatment. We have been asked to see the patient in pulmonary consultation for evaluation and treatment. The request for consultation was made by Dr. Lindsey. She has had increased shortness of breath and dyspnea on exertion for over 1 week. She states "it takes me a while to work myself up to go to the doctor". There has been a productive cough. She denies chills or night sweats. She denies solid dysphagia but does report reflux and often times it comes up into her throat. She denies any cardiac angina or palpitations. There's been no bleeding from any site. No TIA symptoms or syncope. No change in bowel or bladder habits. All other systems were reviewed and were negative. Allergies: Codeine, hydrocodone, penicillin, morphine Medications: See list Past medical history: [facility] 04/06/2017 through 2016 under the care of Dr. Marina for an acute exacerbation of COPD which had been refractory to outpatient treatment. [facility] 2016 through 01/09/2017 under the care of Dr. Marina. During that admission, she was treated for an acute exacerbation of COPD which have been refractory to outpatient treatment and acute bronchitis with bronchospasm. She was referred to Dr. Marina for admission by Dr. Henao. [facility] 07/29 through 08/05/2016 under the care of Dr. Joey De La Fuente. During that hospitalization the patient was treated for COPD exacerbation as well as acute pneumonia. Also, during that hospitalization the patient developed acute mental status changes felt to be secondary to her pain medicines. She was given Narcan at least once. She had a PCO2 as high as 101.0 at one point. She was treated with BiPAP and over time improved to the point where she could safely be discharged home. Past history is also significant for breast cancer on the left. She states she had a lumpectomy in 2007. History of diabetes mellitus, hypertension, COPD, tobacco abuse, diverticulitis/diverticulosis, obstructive sleep apnea, and anemia. Surgical history: Significant for cholecystectomy, hysterectomy, orthopedic shoulder surgery, adenoidectomy, colon stricture resection, tonsillectomy, and lumpectomy. Family history: Positive for breast cancer in her mother. There is also family history of diabetes and hypertension. Social history: The patient is . Her is supportive. She is a current smoker. She states it takes approximately 1-1/2 days to smoke one pack of cigarettes. She's been smoker for at least approximately 20 years. Laboratory: White count is 10,700 with 87.3% segs, 9.1% lymphs, and 0.9% monos; H&H 13.7/41.8 with normal indices and normal red blood cell distribution with; platelet count 235,000; creatinine was 1.9 at admission and has increased to 2.30 (acute on chronic renal failure), BUN 33, sodium 137, potassium 5.5 ( hyperkalemia), liver function tests within normal limits with the exception of a slightly elevated alkaline phosphatase of 199; calcium 8.9, albumin 2.8, total protein 6.0, globulin 3.2; hemoglobin A1c 7.5% showing less than optimal control of her diabetes mellitus Chest x-ray: Shows no masses, infiltrates, or pulmonary edema. Heart size is top normal. Home Medications Medication Instructions Recorded Confirmed Type Anastrozole 1 mg PO DAILY 07/29/16 05/31/17 History Aspirin EC Tab 81 mg PO DAILY 07/29/16 05/31/17 History Cetirizine Tab [ZyrTEC Tab] 10 mg PO DAILY 07/29/16 05/31/17 History Cholecalciferol (Vitamin D3) 2,000 unit PO DAILY 07/29/16 05/31/17 History [Vitamin D3] Gabapentin 300 mg PO TID 07/29/16 05/31/17 History Hydralazine HCl 25 mg PO BID W/MEALS 07/29/16 05/31/17 History Levothyroxine Tab [Synthroid Tab] 100 mcg PO DAILY@0700 07/29/16 05/31/17 History Metoprolol Succinate Xl [Toprol Xl] 25 mg PO DAILY 07/29/16 05/31/17 History Rosuvastatin [Crestor] 10 mg PO BEDTIME 07/29/16 05/31/17 History Amitriptyline [Elavil] 25 mg PO BEDTIME 08/25/16 05/31/17 History Benzonatate 100 - 200 mg PO Q8H PRN 08/25/16 05/31/17 History Ipratropium/Albuterol Inhaler 1 puff INH DAILY 08/25/16 05/31/17 History [Combivent Respimat Inhaler] Pantoprazole Tab [Protonix Tab] 40 mg PO DAILY 08/25/16 05/31/17 History Promethazine Tab [Phenergan Tab] 25 mg PO Q6H PRN 08/25/16 05/31/17 History Eletriptan HBr [Relpax] 40 mg PO DAILY PRN 04/06/17 05/31/17 History Magnesium Oxide 400 mg PO BID #60 tablet 04/10/17 05/31/17 Rx Theophylline ER Tab 300 mg PO BID W/MEALS #60 tablet 04/10/17 05/31/17 Rx Albuterol Sulfate [Ventolin HFA] 2 puff INH Q6H PRN 05/31/17 05/31/17 History Insulin Glargine,Hum.rec.anlog 20 unit SUBCUT BEDTIME #0 05/31/17 05/31/17 Rx [Lantus SoloStar] predniSONE TAB [PredniSONE] 10 mg PO TID PRN #14 tablet 05/31/17 05/31/17 Rx Allergies Allergy/AdvReac Type Severity Reaction Status Date / Time codeine Allergy Severe Difficulty Verified 08/05/16 00:01 Breathing hydrocodone Allergy Severe Difficulty Verified 08/05/16 00:00 Breathing Penicillins Allergy Unknown Verified 08/05/16 00:03 morphine Allergy HIVES Verified 07/24/16 18:34 Exam (Pulmonay) H&P - Constitutional Vitals: Period Temp Pulse Resp BP Sys/Rod Pulse Ox Last 24 Hr 96.6 F-98.7 F 75-101 18-22 144-187/76-91 92-99 Exam: Psych: Oriented x 3; a pleasant and cooperative patient who is acutely and chronically ill appearing HEENT: Pupils, irises, sclera, conjunctiva, and eyelids are normal. The face is symmetrical without rash or masses. Lips, tongue, buccal mucosa, soft and hard palates, and pharynx are WNL Neck: Symmetrical. Thyroid was not palpated. Lymphatics: No submandibular, cervical, or supraclavicular adenopathy Chest: Symmetrical with diffuse high pitched peripheral wheezes heard, loose LAW congestion Breasts: Deferred CV: Regular with a short grade 1/6 systolic ejection murmur at the left sternal border that does not radiate Arterial: Carotids with a fair upstroke. There is no bruit. Upper extremity pulses are palpable. Lower extremity pulses are palpable. Venous: Exam of the neck, upper, and lower extremities is normal Abd: Obese, but no appreciable organomegaly, masses, tenderness, or bruit; Bowel sounds are positive x 4; The aorta was not palpated /Rectal: Deferred Extremities: No clubbing, cyanosis, or obvious DVT, but there is mild bilateral edema Skin: No cancerous or infectious lesions of the exposed, examined skin; the perineal area was not examined M/S: Age appropriate loss of the normal curvature of the cervical, thoracic, and lumbar spine Neurological: Cranial nerves are intact, Long tract motor function is intact; Sensory exam was not done; gait was not tested. The remainder of the exam was noncontributory. Impression: #1: Acute exacerbation of COPD refractory to OP treatment #2: GERD #3: Hypertension #4: Diabetes mellitus #5: COPD #6: Tobacco abuse #7: History of breast cancer on the left; s/p lumpectomy #8: Hx of diverticulosis/diverticulitis #9: See past history Plan: #1: Agree with present antibiotics #2: Start IV Aminophyllin. Will begin with the 250 mg bolus over 3 hours and then run at 22 mg/h. Daily theophylline levels. Hold oral home dose of theophylline at this time. #3: Agree with IV Solu-Medrol #4: We have restarted the patient's Protonix, Singulair, metoprolol, Synthroid , hydralazine, and aspirin #5: Start albuterol 2 mg p.o. every 8 hours #6: Agree with inhalation therapy #7: Check sputum for Gram stain, culture, and sensitivity #8: Start Mucinex 600 mg p.o. twice daily #9: Repeat chest x-ray in the morning #10: See orders We appreciate this consult and will follow along with you. Medical,Surgical,& Family Hx - Medical History Cardio: History of: Hypertension No history of: Aneurysm, Cardiac Dysrhythmia, Cerebrovascular Disease, Congenital Heart Disease, CHF, CAD, AL, Pacemaker, PVD, Valvular Heart Disease, Cardiovascular Problems Psychological: No history of: Anxiety Disorders, ADHD, Behavior Problems, Bipolar Disorder, Depression, Previous Suicide Attempt, Psychiatric/Substance Abuse Tx, Schizophrenia, Violent Behavior, Psychiatric Problems Neurology: History of: Migraine, Seizures (last one january 2016) No history of: Brain Aneurysm, Cerebral Hemorrhage, Cerebrovascular Accident , Cerebral Palsy, Dementia, Multiple Sclerosis, Parkinson's Disease, Peripheral Neuropathy, TIA, Vertigo, Neurologocal Cancer HEENT: No history of: Ear Problem, Eye Problem, Dental Problems, Glaucoma, Oral Cancer Endocrine: History of: Diabetes Mellitus (IDDM), Diabetes Mellitus (NIDDM), Thyroid Disorder No history of: Dyslipidemia Rheumatology: History of;: Fibromyalgia No history of;: Gout, Myasthenia Gravis, Psoriasis, Rheumatoid Arthritis, Sjogrens, Systemic Lupus Erythematosus, Rheumatological Problems Respiratory: History of: Asthma, Bronchitis, COPD, Intubation (January 2016 they gave morphine and pt was allergic to it, went into resp dis), Pneumonia No history of: Obstructive Sleep Apnea, Pulmonary Embolism, Pulmonary Hypertension, Lung Cancer, Respiratory Problems Renal: No history of: Renal (Kidney) Cancer, Dialysis, Renal Failure, Renal Problems Genitourinary: No history of: Kidney Stones (left kidney functions right kidney never grew from ), Recurring Urinary Tract Infections, Genitourinary Cancer, Problems Gastrointestinal: History of: Diverticulitis/ Diverticulosis No history of: Bowel Obstruction, Clostridium Difficile, Crohn's Disease, Esophageal Varices, GERD, Gastrointestinal Bleed, Hemorrhoids, Hematochezia, Hepatitis, Liver Problems, Pancreatitis, Polyps, Ulcerative Colitis, Gastrointestinal Cancer, GI Problems Musculoskeletal: History of: Back/Neck Problems (broken vertebra) No history of: Herniated Disk, Osteoporosis, Musculoskeletal Cancer, Musculoskeletal Problems Hematology: History of: Anemia No history of: Blood Transfusion Reaction, Bleeding Problems, Clotting Problems, Sickle Cell Disease, Hematologic Cancer, Blood Disorders Reproductive: History of: Breast Cancer (2007) No history of: Abnormal Pap Smear Other: History of: Anaphylaxis (when morphine was given in 2007), Cancer ( Breast cancer (Left breast) ') No history of: Anesthesia Reactions, Eczema, HIV, Malignant Hyperthermia, MRSA, Vancomycin-Resistant Enterococci, Skin Problems - Surgical History Cardiac Surgeries: Patient Denies: Femoral-Popliteal Bypass Graft, Cardiac Catheterization, Cardiac Surgery, Carotid Endarterectomy, Internal Defibrillator, Vascular Access Devices Thoracic Surgeries: Patient denies;: Kidney (Renal Surgery), Lithotripsy, Nephrectomy, Organ Transplant, Lobectomy Neurologic Surgeries: Patient denies: Brain Aneurysm, Cerebral Hemorrhage, Neurologic Surgery HEENT Surgeries: Surgical HX of: Tonsilectomy & Adenoidectomy Patient denies: Carotid Endarterectomy, Eye Surgery Abdominal Surgeries: Surgical HX of: Abdominal Surgery, Appendectomy, Cholecystectomy, Colonoscopy, EGD Patient denies: Gastric Bypass Surgery, Hernia Repair, Splenectomy Reproductive Surgeries: Surgical HX of;: Hysterectomy Patient denies;: Cystoscopy, Genitourinary Surgery Orthopedic Surgeries: Surgical HX of;: Orthopedic Surgery (shoulder surgery on both shoulders x2) - Family History Family History: Reports;: Family Cancer (mother-breast ca) Denies;: Family Anesthesia Reaction, Family Diabetes, Family Heart Disease, Family Hypertension, Family Psychiatric Problems, Family Stroke - Social History Smoking Status: Former smoker Frequency of Alcohol Use: None Type of Drug Use: None Results - Labs CBC & BMP: 05/31/17 05:54 05/31/17 05:54
[2017-05-31] MEDS ORDERED: AMINOPHYLLINE 250 MG in SODIUM CHLORIDE 0.9% 100 ML IV ONE (11:00)
[2017-05-31 11:55] LABS: ABG Base Excess -2.5 MMOL/L (-2.5-2.5); ABG HCO3 22.2 MMOL/L (20-26); ABG Oxygen Saturation 93.3 % (95-100); ABG PCO2 36.5 MM HG (35-48); ABG PH 7.387 (7.35-7.45); ABG PO2 68.3 MM HG (80-95); ABG TCO2 18.9 MMOL/L (23-27); Allen Test Positive
[2017-05-31] MEDS: ANASTROZOLE 1 MG TABLET PO SCH (12:30)
[2017-05-31] MEDS: ASPIRIN EC 81 MG TABLET PO SCH (12:31)
[2017-05-31] MEDS: METOPROLOL SUCCINATE XL 25 MG TABLET PO SCH (12:31)
[2017-05-31] MEDS: PANTOPRAZOLE 40 MG TABLET PO SCH (12:31)
[2017-05-31] MEDS: INSULIN NPH 100 UNIT/ML SUBCUT SCH (16:48)
[2017-05-31] MEDS ORDERED: AMITRIPTYLINE 25 MG TABLET PO SCH (21:00)
[2017-05-31] MEDS: AMINOPHYLLINE 500 MG in SODIUM CHLORIDE 0.9% 480 ML IV SCH (21:48)
[2017-05-31] MEDS: hydrALAZINE 25 MG TABLET PO SCH (22:13)
[2017-05-31] MEDS: ALBUTEROL 2 MG TABLET PO SCH ×2 (22:13→22:15)
[2017-05-31] MEDS: SODIUM CHLORIDE 0.9% 1,000 ML IV SCH ×2 (22:59→23:00)
[2017-06-01] MEDS: ALBUTEROL/IPRATROPIUM 3 ML NEB RESP TX SCH ×5 (00:58→23:57)
[2017-06-01] MEDS: methylPREDNISolone SOD SUC 40 MG/1 ML VIAL IV SCH ×4 (03:36→23:00)
[2017-06-01] MEDS: AMINOPHYLLINE 500 MG in SODIUM CHLORIDE 0.9% 480 ML IV SCH (05:36)
[2017-06-01] MEDS: LEVOTHYROXINE 100 MCG TABLET PO SCH (06:13)
[2017-06-01 07:09] LABS: Basophils % 0.2 % (0.0-0.8); Hematocrit 40.5 VOL% (35.7-47.0); Hemoglobin 13.1 GM/DL (12.0-16.0); Immature Granulocytes % 1.8 %; Immature Granulocytes Absolute 0.36 #; Lymphocytes # 1.1 10*3/uL (1.4-4.0); Lymphocytes % 5.5 % (21.3-54.2); Mean Corpuscular HGB Conc 32.3 GM/DL (32-36); Mean Corpuscular Hemoglobin 29 PG (27-34); Mean Platelet Volume 9.4 FL (9.6-12.0); Monocytes # 0.4 10*3/uL (0.11-0.8); Monocytes % 2.2 % (1.7-12.7); Neutrophils # 17.9 10*3/uL (1.4-7.4); Neutrophils % 90.3 % (38.7-73.9); Platelet Count 263 T/CUMM (130-400); Red Blood Count 4.45 MC/CUMM (3.8-5.5); Red Cell Distribution Width 14.5 % (9.3-17.3); White Blood Count 19.8 T/CUMM (4-12)
[2017-06-01 07:43] LABS: Albumin 2.9 G/DL (3.4-5.0); Bilirubin,Total 0.4 MG/DL (0.2-1.0); Calcium 8.8 MG/DL (8.5-10.1); Osmolality,Calculated 301.7 MOS/KG (273-304); Phosphorous 3.9 MG/DL (2.5-4.9); Total Protein 5.7 G/DL (6.4-8.3)
--- NOTE | 2017-06-01 08:45 | XRay Report ---
Exam: XR chest 2V Indication: COPD, cough Comparison study: Prior chest radiograph 05/31/2017 Findings: Diffuse mild prominence of the interstitial lung markings is noted, which may relate represent underlying scarring changes. Cardiac silhouette and mediastinal contours appear similar to prior. There is no focal consolidation, pneumothorax or pleural effusion identified. Right-sided post surgical changes at the glenohumeral joint appears stable from prior. Impression: Chronic appearing interstitial scarring changes with no significant interval change. PROCEDURE INTERPRETED AT [facility] DEPARTMENT OF RADIOLOGY Final Report Signed by: Mak Barrow
[2017-06-01] MEDS: ANASTROZOLE 1 MG TABLET PO SCH (08:55)
[2017-06-01] MEDS: ASPIRIN EC 81 MG TABLET PO SCH (08:56)
[2017-06-01] MEDS: METOPROLOL SUCCINATE XL 25 MG TABLET PO SCH (08:56)
[2017-06-01] MEDS: hydrALAZINE 25 MG TABLET PO SCH ×2 (08:56→16:25)
[2017-06-01] MEDS: PANTOPRAZOLE 40 MG TABLET PO SCH (08:56)
[2017-06-01] MEDS: ALBUTEROL 2 MG TABLET PO SCH ×3 (08:56→20:34)
[2017-06-01] MEDS: INSULIN NPH 100 UNIT/ML SUBCUT SCH ×2 (09:05→16:27)
[2017-06-01] MEDS: INSULIN REGULAR 100 UNIT/ML SUBCUT SCH ×4 (09:06→21:26)
--- NOTE | 2017-06-01 09:22 | Hospitalist Progress Note ---
<Finn Berman - Last Filed: 06/01/17 09:19> Assessment and Plan (1) COPD with exacerbation Status: Acute Assessment and plan: The patient has required multiple hospitalizations in the past for exacerbation. The patient is a current smoker however she reports that she has drastically reduced her nicotine use to 1 pack a day. Discussed with patient the need to sustain from nicotine use. Nicotine patch offered for use during the clinical encounter. We will start empiric antibiotic coverage, inhaled bronchodilators, and intravenous corticosteroids. We will obtain chest x-ray in a.m. and consult pulmonary to evaluate and assist during the clinical encounter. 05/31-we will continue empiric antibiotic coverage, inhaled bronchodilators, and intravenous corticosteroids. We will recheck chest x-ray in a.m. Awaiting pulmonary evaluation. 06/01-the patient was seen by pulmonary on yesterday. Aminophyllin intravenously was initiated on yesterday. We will monitor levels. We appreciate the input from pulmonary. We will continue empiric antibiotic coverage and inhaled bronchodilators as previously ordered. Current Visit: No (2) Diabetes mellitus Status: Chronic Assessment and plan: The patient has a known history of diabetes mellitus. We will obtain hemoglobin A1c, start Accu-Cheks with sliding scale coverage, and consult senior health educator. 06/01-we will continue to monitor blood glucose levels. Continue sliding scale coverage. Current Visit: No Qualifiers: Diabetes mellitus type: type 2 Chronic kidney disease stage: stage 3 ( moderate) (3) Chronic kidney disease Status: Acute Assessment and plan: The patient has a known diagnosis of chronic kidney disease. Upon review of the patient's previous medical records; on the previous admission on April 10, 2017 BUN and creatinine was noted at 57 and 1.9; 24 and 1.9 at the time of admission on yesterday, and noted at 33/2.3 today. We will gently rehydrate and recheck in a.m. 05/31-BUN and creatinine noted at 45 and 2.20. We will monitor renal function. Current Visit: Yes Hospitalist: Subjective Interval history: Patient seen and examined; no significant overnight events reported. Patient definitely looks much better in comparison to her appearance at the time of admission. The patient was seen by pulmonary on yesterday and Aminophyllin was initiated intravenously. Exam - Constitutional Vitals: Period Temp Pulse Resp BP Sys/Rod Pulse Ox Last 24 Hr 97.1 F-98.0 F 81-109 16-20 140-164/73-95 91-99 General appearance: normal weight, no acute distress - Head Head exam: Present: normal inspection, normocephalic, atraumatic - Eye Eye exam: Present: EOMI, conjunctival injection Pupils: Present: DEBRA, normal accommodation - ENT ENT exam: Present: normal exam, normal external ear exam, normal oropharynx - Neck Neck exam: Present: normal inspection. Absent: lymphadenopathy, meningismus, thyromegaly - Respiratory Respiratory exam: Present: wheezes - Cardiovascular Cardiovascular exam: Present: regular rate and rhythm. Absent: carotid bruit, diastolic murmur, gallop, JVD, rubs, systolic murmur - GI/Abdominal GI/Abdominal exam: Present: normal bowel sounds, soft - Extremities Exam Extremities exam: Present: normal inspection, normal capillary refill, full ROM , edema (Trace edema noted to bilateral lower extremity) - Back Exam Back exam: Present: normal inspection - Neurological Exam Neurological exam: Present: alert, oriented X3, CN II-XII intact - Psychiatric Psychiatric exam: Present: normal affect, normal mood - Skin Skin exam: Present: normal color, warm, dry Results - Labs CBC & BMP: 06/01/17 04:52 06/01/17 04:52 Lab Results: I have reviewed the past 24 hour labs <Maxim Lindsey - Last Filed: 06/01/17 13:40> Hospitalist: Subjective Interval history: Patient seen and examined independently of CAN Berman, agree with assessment and plan as documented. Patient is doing markedly better today. Started on theophylline yesterday. She is now eager for discharge. FSGs are elevated secondary to steroid use, steroids decreased today, will also increase her basal insulin. If still doing better with po theophylline and decreased steroids might be able to discharge tomorrow. Exam - Constitutional Vitals: Period Temp Pulse Resp BP Sys/Rod Pulse Ox Last 24 Hr 97.1 F-98.0 F 81-113 16-20 138-164/73-95 91-99 Results - Labs CBC & BMP: 06/01/17 04:52 06/01/17 04:52
--- NOTE | 2017-06-01 11:18 | Pulmonology Progress Note ---
Pulmonary - PN: Subj Interval history: Jose Elias Pires, [facility]-, acting as scribe for Dr. Wilbur Marina Mrs. Crowe is a 66-year-old white female who we saw in initial pulmonary consultation on 05/31/2017. At that time, our impressions were: #1: Acute exacerbation of COPD refractory to OP treatment #2: GERD #3: Hypertension #4: Diabetes mellitus #5: COPD #6: Tobacco abuse #7: History of breast cancer on the left; s/p lumpectomy #8: Hx of diverticulosis/diverticulitis #9: See past history 06/01/2017. Patient was seen today along with her . History was started on IV Aminophyllin, and the patient reports that her breathing is markedly improved. Her home medicine list reported theophylline 300 mg twice daily, but she states she was not taking this. Theophylline level today is 6.9. Her high- pitched peripheral wheezes have subsided, so we will convert the Aminophyllin to oral theophylline 300 mg twice daily. She will have another theophylline level tomorrow. Chest x-ray shows generalized increased markings. No definite infiltrate. On chest exam her wheezes are markedly improved. We will decrease her Solu-Medrol to 40 mg every 12 hours. Note, her glucoses are greater than 300 consistently. She is on sliding scale insulin as well as scheduled insulin. Hemoglobin A1c is noted to be 7.5%. Medications have been reviewed. See above. Labs been reviewed. White count is 19,800 with 90.3% segs; H&H 13.1/40.5; platelet count 263,000; creatinine 2.20, BUN 45, electrolytes are normal; liver function tests within normal limits with the exception of a minimally elevated alkaline phosphatase of 162; calcium 8.8, albumin 2.9, total protein 5.7; theophylline level 6.9 ABGs done 05/31/2017 and an FiO2 of 28% show pH 7.387, PCO2 36.5, PO2 60.3, bicarb 22.2, and oxygen saturation 93.3%. Exam (Progress Note) - Constitutional Vitals: Period Temp Pulse Resp BP Sys/Rod Pulse Ox Last 24 Hr 97.1 F-98.0 F 81-109 16-20 140-164/73-95 91-99 Exam: Chest... See above Heart no gallop Abdomen is obese, but nontender and nondistended; bowel sounds are positive 4 Extremities nothing to suggest acute deep venous femoral phlebitis Psychiatric oriented 3 Neurologic long-term motor function is intact Plan: Convert IV Aminophyllin to oral theophylline 300 mg p.o. twice daily. Once the first dose of theophylline has been given, the IV Aminophyllin can be discontinued. Repeat chest x-ray in the morning. Decrease Solu-Medrol to 40 mg every 12 hours. See orders. Results - Labs CBC & BMP: 06/01/17 04:52 06/01/17 04:52
[2017-06-01] MEDS: THEOPHYLLINE ER 300 MG TABLET PO SCH (16:25)
[2017-06-01] MEDS: AMITRIPTYLINE 25 MG TABLET PO SCH (20:34)
[2017-06-01] MEDS ORDERED: LEVOFLOXACIN INJ 750 MG in PREMIX 1 EACH IV SCH (21:00)
[2017-06-02 05:48] LABS: Basophils # 0.1 10*3/uL (0.0-0.2); Basophils % 0.3 % (0.0-0.8); Hematocrit 40.1 VOL% (35.7-47.0); Hemoglobin 13.1 GM/DL (12.0-16.0); Immature Granulocytes % 3.3 %; Immature Granulocytes Absolute 0.64 #; Lymphocytes # 1.2 10*3/uL (1.4-4.0); Lymphocytes % 6.1 % (21.3-54.2); Mean Corpuscular HGB Conc 32.7 GM/DL (32-36); Mean Corpuscular Hemoglobin 30 PG (27-34); Mean Corpuscular Volume 90.5 FL (87-102); Mean Platelet Volume 9.3 FL (9.6-12.0); Monocytes # 0.7 10*3/uL (0.11-0.8); Monocytes % 3.5 % (1.7-12.7); Neutrophils # 16.9 10*3/uL (1.4-7.4); Neutrophils % 86.8 % (38.7-73.9); Platelet Count 267 T/CUMM (130-400); Red Blood Count 4.43 MC/CUMM (3.8-5.5); Red Cell Distribution Width 14.7 % (9.3-17.3); White Blood Count 19.4 T/CUMM (4-12)
[2017-06-02 06:24] LABS: Albumin 2.9 G/DL (3.4-5.0); Bilirubin,Total 0.6 MG/DL (0.2-1.0); Calcium 9.5 MG/DL (8.5-10.1); Osmolality,Calculated 303.4 MOS/KG (273-304); Phosphorous 3.7 MG/DL (2.5-4.9); Potassium 5.3 MMOL/L (3.5-5.1); Total Protein 5.8 G/DL (6.4-8.3)
[2017-06-02 06:32] LABS: Lymphocytes 4 % (20-55); Microcytosis 1+; Platelet Estimate Adequate; Segmented Neutrophils 91 % (50-85); Target Cells Slight; Total Cells Counted 100
--- NOTE | 2017-06-02 07:23 | XRay Report ---
Exam: XR chest 2V Date: 06/02/2017 4:00 AM Indication: COPD Comparison: 06/01/2017 Technical: PA lateral Findings: A right total shoulder prosthesis is present. Previous left axillary dissection present. The heart is normal in size. Lateral marginal osteophytes are present. No obvious consolidating infiltrate or effusion. Previous cholecystectomy clips present. Oxygen tubing present. Impression: 1. Status post cholecystectomy and total shoulder prosthesis. 2. Mild wedge deformity in the lower thoracic spine approximately T12 3. Previous left axillary dissection and degenerative spondylosis change thoracic spine 4. No acute cardiopulmonary pathology PROCEDURE INTERPRETED AT [facility] DEPARTMENT OF RADIOLOGY Final Report Signed by: Dr. Wilbur Cadena
[2017-06-02] MEDS: ALBUTEROL/IPRATROPIUM 3 ML NEB RESP TX SCH (07:33)
[2017-06-02] MEDS: INSULIN NPH 100 UNIT/ML SUBCUT SCH (09:25)
[2017-06-02] MEDS: INSULIN REGULAR 100 UNIT/ML SUBCUT SCH ×2 (09:26→11:33)
[2017-06-02] MEDS: THEOPHYLLINE ER 300 MG TABLET PO SCH (09:26)
[2017-06-02] MEDS: METOPROLOL SUCCINATE XL 25 MG TABLET PO SCH (09:27)
[2017-06-02] MEDS: LEVOTHYROXINE 100 MCG TABLET PO SCH (09:27)
[2017-06-02] MEDS: ASPIRIN EC 81 MG TABLET PO SCH (09:28)
[2017-06-02] MEDS: PANTOPRAZOLE 40 MG TABLET PO SCH (09:28)
[2017-06-02] MEDS: ALBUTEROL 2 MG TABLET PO SCH (09:28)
[2017-06-02] MEDS: hydrALAZINE 25 MG TABLET PO SCH (09:28)
[2017-06-02] MEDS: ANASTROZOLE 1 MG TABLET PO SCH (09:29)
[2017-06-02] MEDS: methylPREDNISolone SOD SUC 40 MG/1 ML VIAL IV SCH (09:29)
--- NOTE | 2017-06-02 11:08 | Discharge Summary ---
Hospital Course - Hospital Course Hospital Course: This is a very pleasant 66-year-old chronically ill female that presented to [facility] as a direct admission from Dr. Maurice Henao's office this afternoon for the evaluation of shortness of breath. Patient has a local history significant for chronic obstructive pulmonary disease, breast cancer, left femur fracture, anemia, insulin-dependent diabetes, obstructive sleep apnea, and nicotine addiction. Patient has surgical history significant for adenoidectomy, cholecystectomy, hysterectomy, tonsillectomy, colon stricture resection, and left leg femur repair. The patient reported the onset of symptoms 2 days prior to admission. The patient reported similar episodes in the past which were generally attributed to chronic obstructive pulmonary exacerbation. The patient reports that she is a current smoker however reports that she has "cut down from 4 packs a day to 1 pack a day". The patient reported increase in dyspnea however the patient is normally extremely dyspneic upon minimal exertion. She reported a productive cough at times and describes the production as "saucedo and clear in color". The patient has been experiencing intermittent chest pain however she reports that it only occurs when she coughs. The patient became concerned and presented to Dr. Maurice Henao's office this morning for evaluation. The patient was assessed and labs were obtained. I was notified by Dr. Maurice Henao's staff regarding the patient's need for inpatient hospitalization for a suspected chronic obstructive pulmonary disease exacerbation. The patient was admitted to the hospitalist service for COPD exacerbation. She was started on duonebs, IV solumedrol and levaquin. Pulmonary was consulted. She was started on IV aminophyllin. Patient started to improve clinically. She has now reached maximal benefit of inpatient stay and will be discharged to home. - Time spent with patient Time with patient DS: Greater than 30 minutes (35) Diagnosis - Discharge Diagnosis (1) COPD with exacerbation Status: Resolved (2) Diabetes mellitus Status: Chronic (3) Chronic kidney disease Status: Chronic Specialty Discharge - Follow Up or Referrals Follow up with: Maurice Henao MD [Primary Care Provider] - 1 Week Discharge Plan - Discharge Data Disposition: Disch To Home/Self Care Condition at Discharge: Stable Discharge Diet: diabetic diet Activity: increase activity as tolerated Hygiene: no restrictions Weight Bearing at Discharge: weight bear as tolerated Driving: no restrictions Contact your physician if you experience:: fever over 101, Shortness of breath - Discharge Medications Continue Metoprolol Succinate Xl [Toprol Xl] 25 mg PO DAILY Hydralazine HCl 25 mg PO BID W/MEALS Gabapentin 300 mg PO TID Rosuvastatin [Crestor] 10 mg PO BEDTIME Aspirin EC Tab 81 mg PO DAILY Anastrozole 1 mg PO DAILY Cetirizine Tab [ZyrTEC Tab] 10 mg PO DAILY Cholecalciferol (Vitamin D3) [Vitamin D3] 2,000 unit PO DAILY Levothyroxine Tab [Synthroid Tab] 100 mcg PO DAILY@0700 Promethazine Tab [Phenergan Tab] 25 mg PO Q6H PRN PRN Reason: Nausea Amitriptyline [Elavil] 25 mg PO BEDTIME Pantoprazole Tab [Protonix Tab] 40 mg PO DAILY Benzonatate 100 - 200 mg PO Q8H PRN PRN Reason: Cough Ipratropium/Albuterol Inhaler [Combivent Respimat Inhaler] 1 puff INH DAILY Eletriptan HBr [Relpax] 40 mg PO DAILY PRN PRN Reason: Migraine Headache Magnesium Oxide 400 mg PO BID #60 tablet predniSONE TAB [PredniSONE] 10 mg PO TID PRN #14 tablet PRN Reason: Shortness Of Breath/Wheezing Albuterol Sulfate [Ventolin HFA] 2 puff INH Q6H PRN PRN Reason: Shortness Of Breath/Wheezing Theophylline ER Tab 300 mg PO BID W/MEALS #60 tablet Changed predniSONE TAB [PredniSONE] 10 mg PO DAILY #20 tablet - Follow Up or Referral - Forms/Instructions Exam - Constitutional Vitals: Period Temp Pulse Resp BP Sys/Rod Pulse Ox Last 24 Hr 97.2 F-98.2 F 87-113 16-22 138-164/73-102 91-100 General appearance: over weight - Head Head exam: Present: normocephalic, atraumatic - Eye Eye exam: Present: EOMI Pupils: Present: DEBRA - ENT ENT exam: Present: normal exam - Neck Neck exam: Present: normal inspection - Respiratory Respiratory exam: Present: clear to auscultation bilaterally. Absent: wheezes - Cardiovascular Cardiovascular exam: Present: regular rate and rhythm - GI/Abdominal GI/Abdominal exam: Present: normal bowel sounds, soft. Absent: tenderness, rebound - Extremities Exam Extremities exam: Present: normal inspection - Back Exam Back exam: Present: normal inspection - Neurological Exam Neurological exam: Present: alert, oriented X3 - Psychiatric Psychiatric exam: Present: normal affect, normal mood - Skin Skin exam: Present: warm, intact Discharge Results Procedures and tests throughout hospitalization: Pending Orders 05/30/17 16:19 Blood Culture Stat Labs on day of discharge: Labs from last 24 hours 06/02/17 06/02/17 06/02/17 08:06 05:14 05:14 WBC 19.4 H RBC 4.43 Hgb 13.1 Hct 40.1 MCV 90.5 MCH 30 MCHC 32.7 RDW 14.7 Plt Count 267 MPV 9.3 L Neut % (Auto) 86.8 H Lymph % (Auto) 6.1 L [place] % (Auto) 3.5 Eos % (Auto) 0.0 Baso % (Auto) 0.3 Neut # (Auto) 16.9 H Lymph # (Auto) 1.2 L [place] # (Auto) 0.7 Eos # (Auto) 0.0 Baso # (Auto) 0.1 Total Counted 100 Immature Gran % 3.3 Nucleated RBC % 0.0 Immature Gran # 0.64 Segmented Neutrophils 91 H Lymphocytes 4 L Monocytes 5 Nucleated RBCs # 0.00 Platelet Estimate Adequate Microcytosis 1+ Target Cells Slight Sodium 140 Potassium 5.3 H Chloride 108 H Carbon Dioxide 22 Anion Gap 15.3 H BUN 50 H Creatinine 2.20 H GFR Calculation 28 BUN/Creatinine Ratio 22.00 H Glucose 307 H POC Glucose 311 H Calculated Osmolality 303.4 Calcium 9.5 Phosphorus 3.7 Magnesium 2.0 Total Bilirubin 0.60 AST 21 ALT 26 Alkaline Phosphatase 146 H Total Protein 5.8 L Albumin 2.9 L Globulin 2.9 Albumin/Globulin Ratio 1.0 L Theophylline 06/02/17 06/01/17 06/01/17 05:14 20:36 15:54 WBC RBC Hgb Hct MCV MCH MCHC RDW Plt Count MPV Neut % (Auto) Lymph % (Auto) [place] % (Auto) Eos % (Auto) Baso % (Auto) Neut # (Auto) Lymph # (Auto) [place] # (Auto) Eos # (Auto) Baso # (Auto) Total Counted Immature Gran % Nucleated RBC % Immature Gran # Segmented Neutrophils Lymphocytes Monocytes Nucleated RBCs # Platelet Estimate Microcytosis Target Cells Sodium Potassium Chloride Carbon Dioxide Anion Gap BUN Creatinine GFR Calculation BUN/Creatinine Ratio Glucose POC Glucose 335 H 369 H Calculated Osmolality Calcium Phosphorus Magnesium Total Bilirubin AST ALT Alkaline Phosphatase Total Protein Albumin Globulin Albumin/Globulin Ratio Theophylline 9.5 L 06/01/17 11:19 WBC RBC Hgb Hct MCV MCH MCHC RDW Plt Count MPV Neut % (Auto) Lymph % (Auto) [place] % (Auto) Eos % (Auto) Baso % (Auto) Neut # (Auto) Lymph # (Auto) [place] # (Auto) Eos # (Auto) Baso # (Auto) Total Counted Immature Gran % Nucleated RBC % Immature Gran # Segmented Neutrophils Lymphocytes Monocytes Nucleated RBCs # Platelet Estimate Microcytosis Target Cells Sodium Potassium Chloride Carbon Dioxide Anion Gap BUN Creatinine GFR Calculation BUN/Creatinine Ratio Glucose POC Glucose 448 H Calculated Osmolality Calcium Phosphorus Magnesium Total Bilirubin AST ALT Alkaline Phosphatase Total Protein Albumin Globulin Albumin/Globulin Ratio Theophylline Preliminary micro results at discharge 05/30/17 16:19 Blood Culture - Preliminary Blood No growth at 1 day 05/30/17 16:19 Blood Culture - Preliminary Blood No growth at 1 day DS: Provider Date of admission: 05/30/17 15:15 Primary care physician: Maurice Henao MD Attending physician on admission: Maxim Lindsey MD Consults: 05/30/17 12:55 Consult to Physician [CONS] Routine Comment: Consulting Provider: Wilbur Marina When should Consulting Provider be notified: Now Consult to Specialist Group: Pulmonology Person Notified: [email or web address] Date Notified: 05/31/17 Time Notified: 07:36 Consult Notification Comment: 05/30/17 17:01 Consult to [facility], Educator [CONS] Routine Reason for Eyeglass Frames Inspector: Diabetes Education Discharging clinician: Maxim Lindsey MD
--- NOTE | 2017-06-02 11:18 | Pulmonology Progress Note ---
Pulmonary - PN: Subj Interval history: Mrs. Crowe is a 66-year-old white female who we saw in initial pulmonary consultation on 05/31/2017. At that time, our impressions were: #1: Acute exacerbation of COPD refractory to OP treatment #2: GERD #3: Hypertension #4: Diabetes mellitus #5: COPD #6: Tobacco abuse #7: History of breast cancer on the left; s/p lumpectomy #8: Hx of diverticulosis/diverticulitis #9: See past history 06/01/2017. Patient was seen today along with her . History was started on IV Aminophyllin, and the patient reports that her breathing is markedly improved. Her home medicine list reported theophylline 300 mg twice daily, but she states she was not taking this. Theophylline level today is 6.9. Her high- pitched peripheral wheezes have subsided, so we will convert the Aminophyllin to oral theophylline 300 mg twice daily. She will have another theophylline level tomorrow. Chest x-ray shows generalized increased markings. No definite infiltrate. On chest exam her wheezes are markedly improved. We will decrease her Solu-Medrol to 40 mg every 12 hours. Note, her glucoses are greater than 300 consistently. She is on sliding scale insulin as well as scheduled insulin. Hemoglobin A1c is noted to be 7.5%. Medications have been reviewed. See above. Labs been reviewed. White count is 19,800 with 90.3% segs; H&H 13.1/40.5; platelet count 263,000; creatinine 2.20, BUN 45, electrolytes are normal; liver function tests within normal limits with the exception of a minimally elevated alkaline phosphatase of 162; calcium 8.8, albumin 2.9, total protein 5.7; theophylline level 6.9 ABGs done 05/31/2017 and an FiO2 of 28% show pH 7.387, PCO2 36.5, PO2 60.3, bicarb 22.2, and oxygen saturation 93.3%. 06/02/2017. This patient continues to improve rapidly. She is 100% wheeze free today her theophylline level is therapeutic on p.o. theophylline. Theophylline was a cabrera medicine her improvement. She was supposed to be on at home but she did not remember the name of it. Chest x-ray 06/02/2017 shows some mild hyperinflation. There are scattered areas of interstitial scarring. I think her infiltrates have resolved. There is no heart failure and I see no masses. There are no positive cultures. Creatinine is stable at 2.20 with a BUN of 50. Liver function tests are normal white count is 19,400 with 86.86 H&H 13.1/ 40.1. Patient has been afebrile for days. Her white count is probably related to the steroids. I suggested she go home on prednisone 10 mg daily for 10 days and then 10 mg every other day for 10 days. Theophylline 300 twice daily is cabrera to her treatment. I have again discussed with the patient in need to stop smoking cigarettes per. My nurse practitioner LUDWIG Samuel has discussed the case with Dr. Lindsey. We will sign off. Reconsult if new This patient would like to go home. I think it is safe for her to go home. Exam (Progress Note) - Constitutional Vitals: Period Temp Pulse Resp BP Sys/Rod Pulse Ox Last 24 Hr 97.1 F-98.0 F 81-109 16-20 140-164/73-95 91-99 Exam: Chest... Wheeze free Heart no gallop Abdomen is obese, but nontender and nondistended; bowel sounds are positive 4 Extremities nothing to suggest acute deep venous femoral phlebitis Psychiatric oriented 3 Neurologic long-term motor function is intact. Cranial nerves are intact Neck. No meningismus Lymphatics no submandibular cervical supraclavicular or epitrochlear adenopathy The remainder the physical exam is noncontributory Plan: 06/01/2017 convert IV Aminophyllin to oral theophylline 300 mg p.o. twice daily. Once the first dose of theophylline has been given, the IV Aminophyllin can be discontinued. Repeat chest x-ray in the morning. Decrease Solu-Medrol to 40 mg every 12 hours. See orders. 06/02/2017. 1. See my note above concerning discharge medicines suggestions 2. We will sign off. 3. The patient should have a follow-up appointment with her primary care physician Dr. Maurice Henao Exam (Progress Note) - Constitutional Vitals: Period Temp Pulse Resp BP Sys/Rod Pulse Ox Last 24 Hr 97.2 F-98.2 F 87-113 16-22 138-164/73-102 91-100 Results - Labs CBC & BMP: 06/02/17 05:14 06/02/17 05:14 Specialty Discharge - Follow Up or Referrals Follow up with: Maurice Henao MD [Primary Care Provider] - 06/13/17 9:00 am
[2017-06-02 12:14] VITALS: BP 144/91
== END 2017-06-02 11:59 | disposition home or self-care (01) | DRG 191 ==
LOC: N.2E 15:15
PROVIDERS: ADMIT Internal Medicine; ATTEND Internal Medicine

== ENCOUNTER 2017-07-18 13:54 | Inpatient (IN) ==
[2017-07-18] MEDS ORDERED: DEXTROSE 50% 25 GM/50 ML SYRINGE IV PRN ×2 (15:59→16:59)
[2017-07-18] MEDS ORDERED: GLUCAGON 1 MG VIAL IM PRN ×2 (15:59→16:59)
[2017-07-18] MEDS ORDERED: ONDANSETRON 4 MG/2 ML VIAL IV PRN (15:59)
--- NOTE | 2017-07-18 16:21 | Hospitalist History & Physical ---
Assessment and Plan - Time spent with patient Time spent with patient: Greater than 30 minutes (1) COPD with exacerbation Status: Resolved Assessment and plan: 07/18/17 Direct Admit Start IV solumedrol Duonebs q6h, supplemental oxygen therapy sliding scale, A1c labs (CBC,CMP,TSH,PT,INR,Urinalysis with culture) with repeat a.m. labs chest xray Patient uses CPAP at night and is to bring it to hospital for use at night Further recommendations per Dr Harris to follow. Current Visit: No (2) Diabetes mellitus Status: Chronic Current Visit: No Qualifiers: Diabetes mellitus type: type 2 Chronic kidney disease stage: stage 3 ( moderate) History of Present Illness Chief complaint: shortness of breath/COPD exacerbation History of present illness: Ms. Crowe is a 66 year old white female w/ PMHx Diabetes, COPD, Breast Cancer ( 2007), PAT, HTN, Migraine, presented as a Direct admit to room [address] Henao/Sandy Lal [employer]EARCH ADVISOR office for COPD exacerbation. She reports worsening shortness of breath x1 week with cough of occasional clear sputum production. She denies fever, chills, or chest pain. She verbalize she is not on home o2 but does use CPAP at bedtime. She is a current 1 pack per 3 days smoker. Denies alcohol use, denies drug use. She received Pneumococcal Vaccine about 2 years ago. She does take the annual Flu Vaccine. Upon arrival chest xray obtained. Temp. 98.4, Pulse 100, RR 20, BP 164/90, O2 Sats 90% on room air. FMHx : Mother: Breast Cancer, Family with HTN and DM. SHx: Appendectomy, Cholecystectomy, EGD, Colonscopy (3-4 years ago), hysterectomy, shoulder scope on both shoulders. PCP: Dr Henao/Sandy Lal NP Pulmonary: Has seen Dr Marina in the hospital but not in the clinic After discussion with Sandy Lal NP and Dr Tobar it was agreed to accept patient and direct admit patient to the floor for further evaluation and treatment. Home Medications Medication Instructions Recorded Confirmed Type Anastrozole 1 mg PO DAILY 07/29/16 05/31/17 History Aspirin EC Tab 81 mg PO DAILY 07/29/16 05/31/17 History Cetirizine Tab [ZyrTEC Tab] 10 mg PO DAILY 07/29/16 05/31/17 History Cholecalciferol (Vitamin D3) 2,000 unit PO DAILY 07/29/16 05/31/17 History [Vitamin D3] Gabapentin 300 mg PO TID 07/29/16 05/31/17 History Hydralazine HCl 25 mg PO BID W/MEALS 07/29/16 05/31/17 History Levothyroxine Tab [Synthroid Tab] 100 mcg PO DAILY@0700 07/29/16 05/31/17 History Metoprolol Succinate Xl [Toprol Xl] 25 mg PO DAILY 07/29/16 05/31/17 History Rosuvastatin [Crestor] 10 mg PO BEDTIME 07/29/16 05/31/17 History Amitriptyline [Elavil] 25 mg PO BEDTIME 08/25/16 05/31/17 History Benzonatate 100 - 200 mg PO Q8H PRN 08/25/16 05/31/17 History Ipratropium/Albuterol Inhaler 1 puff INH DAILY 08/25/16 05/31/17 History [Combivent Respimat Inhaler] Pantoprazole Tab [Protonix Tab] 40 mg PO DAILY 08/25/16 05/31/17 History Promethazine Tab [Phenergan Tab] 25 mg PO Q6H PRN 08/25/16 05/31/17 History Eletriptan HBr [Relpax] 40 mg PO DAILY PRN 04/06/17 05/31/17 History Magnesium Oxide 400 mg PO BID #60 tablet 04/10/17 05/31/17 Rx Albuterol Sulfate [Ventolin HFA] 2 puff INH Q6H PRN 05/31/17 05/31/17 History Insulin Glargine,Hum.rec.anlog 20 unit SUBCUT BEDTIME #0 05/31/17 05/31/17 Rx [Lantus SoloStar] predniSONE TAB [PredniSONE] 10 mg PO TID PRN #14 tablet 05/31/17 05/31/17 Rx Theophylline ER Tab 300 mg PO BID W/MEALS #60 tablet 06/02/17 Rx predniSONE TAB [PredniSONE] 10 mg PO DAILY #20 tablet 06/02/17 Rx Allergies Allergy/AdvReac Type Severity Reaction Status Date / Time codeine Allergy Severe Difficulty Verified 08/05/16 00:01 Breathing hydrocodone Allergy Severe Difficulty Verified 08/05/16 00:00 Breathing Penicillins Allergy Unknown Verified 08/05/16 00:03 morphine Allergy HIVES Verified 07/24/16 18:34 Medical,Surgical,& Family Hx - Medical History Cardio: History of: Hypertension No history of: Aneurysm, Cardiac Dysrhythmia, Cerebrovascular Disease, Congenital Heart Disease, CHF, CAD, ID, Pacemaker, PVD, Valvular Heart Disease, Cardiovascular Problems Psychological: No history of: Anxiety Disorders, ADHD, Behavior Problems, Bipolar Disorder, Depression, Previous Suicide Attempt, Psychiatric/Substance Abuse Tx, Schizophrenia, Violent Behavior, Psychiatric Problems Neurology: History of: Migraine, Seizures (last one january 2016) No history of: Brain Aneurysm, Cerebral Hemorrhage, Cerebrovascular Accident , Cerebral Palsy, Dementia, Multiple Sclerosis, Parkinson's Disease, Peripheral Neuropathy, TIA, Vertigo, Neurologocal Cancer HEENT: No history of: Ear Problem, Eye Problem, Dental Problems, Glaucoma, Oral Cancer Endocrine: History of: Diabetes Mellitus (IDDM), Diabetes Mellitus (NIDDM), Thyroid Disorder No history of: Dyslipidemia Rheumatology: History of;: Fibromyalgia No history of;: Gout, Myasthenia Gravis, Psoriasis, Rheumatoid Arthritis, Sjogrens, Systemic Lupus Erythematosus, Rheumatological Problems Respiratory: History of: Asthma, Bronchitis, COPD, Intubation (January 2016 they gave morphine and pt was allergic to it, went into resp dis), Obstructive Sleep Apnea, Pneumonia No history of: Pulmonary Embolism, Pulmonary Hypertension, Lung Cancer, Respiratory Problems Renal: No history of: Renal (Kidney) Cancer, Dialysis, Renal Failure, Renal Problems Genitourinary: No history of: Kidney Stones (left kidney functions right kidney never grew from ), Recurring Urinary Tract Infections, Genitourinary Cancer, Problems Gastrointestinal: History of: Diverticulitis/ Diverticulosis No history of: Bowel Obstruction, Clostridium Difficile, Crohn's Disease, Esophageal Varices, GERD, Gastrointestinal Bleed, Hemorrhoids, Hematochezia, Hepatitis, Liver Problems, Pancreatitis, Polyps, Ulcerative Colitis, Gastrointestinal Cancer, GI Problems Musculoskeletal: History of: Back/Neck Problems (broken vertebra) No history of: Herniated Disk, Osteoporosis, Musculoskeletal Cancer, Musculoskeletal Problems Hematology: History of: Anemia No history of: Blood Transfusion Reaction, Bleeding Problems, Clotting Problems, Sickle Cell Disease, Hematologic Cancer, Blood Disorders Reproductive: History of: Breast Cancer (2007) No history of: Abnormal Pap Smear Other: History of: Anaphylaxis (when morphine was given in 2007), Cancer ( Breast cancer (Left breast) ') No history of: Anesthesia Reactions, Eczema, HIV, Malignant Hyperthermia, MRSA, Vancomycin-Resistant Enterococci, Skin Problems - Surgical History Cardiac Surgeries: Patient Denies: Femoral-Popliteal Bypass Graft, Cardiac Catheterization, Cardiac Surgery, Carotid Endarterectomy, Internal Defibrillator, Vascular Access Devices Thoracic Surgeries: Patient denies;: Kidney (Renal Surgery), Lithotripsy, Nephrectomy, Organ Transplant, Lobectomy Neurologic Surgeries: Patient denies: Brain Aneurysm, Cerebral Hemorrhage, Neurologic Surgery HEENT Surgeries: Surgical HX of: Tonsilectomy & Adenoidectomy Patient denies: Carotid Endarterectomy, Eye Surgery Abdominal Surgeries: Surgical HX of: Abdominal Surgery, Appendectomy, Cholecystectomy, Colonoscopy, EGD Patient denies: Gastric Bypass Surgery, Hernia Repair, Splenectomy Reproductive Surgeries: Surgical HX of;: Hysterectomy Patient denies;: Cystoscopy, Genitourinary Surgery Orthopedic Surgeries: Surgical HX of;: Orthopedic Surgery (shoulder surgery on both shoulders x2) - Family History Family History: Reports;: Family Cancer (mother-breast ca) Denies;: Family Anesthesia Reaction, Family Diabetes, Family Heart Disease, Family Hypertension, Family Psychiatric Problems, Family Stroke - Social History Smoking Status: Current every day smoker (1 pack per 3 days) Frequency of Alcohol Use: None Type of Drug Use: None Marital Status: Lives With:: Spouse 12 point system: reviewed and no additional remarkable complaints except as stated Exam - Constitutional Vitals: Period Temp Pulse Resp BP Sys/Rod Pulse Ox Last 24 Hr 98.4 F 109 20 164/92 90 General appearance: no acute distress, over weight - Head Head exam: Present: normal inspection - Eye Eye exam: Present: EOMI Pupils: Present: DEBRA - Neck Neck exam: Present: normal inspection. Absent: thyromegaly - Respiratory Respiratory exam: Present: rhonchi (bilateral expiration posteriorly) - Cardiovascular Cardiovascular exam: Present: regular rate and rhythm - GI/Abdominal GI/Abdominal exam: Present: normal bowel sounds, soft. Absent: tenderness, rebound - Extremities Exam Extremities exam: Present: normal inspection, full ROM. Absent: edema - Neurological Exam Neurological exam: Present: alert, oriented X3, CN II-XII intact - Psychiatric Psychiatric exam: Present: normal affect, normal mood. Absent: agitated, anxious - Skin Skin exam: Present: normal color, warm, dry Results - Labs CBC & BMP: 07/18/17 16:39 Lab Results: I have reviewed the past 24 hour labs Labs: LABS are ordered and waiting for results. - Diagnostic Findings Procedure: Chest x-ray: pending
--- NOTE | 2017-07-18 16:51 | XRay Report ---
XR chest 2V Indication: Shortness of breath Comparison: Chest x-ray 06/02/2017 Technique: PA and lateral chest x-ray was performed. Findings: Heart size appears within normal limits. There is coarsened appearance of the interstitial markings in the lower chest but levels suggestive change since the comparison study. Pulmonary vasculature appears within normal limits. Bones and soft tissues demonstrate no significant interval change. Prior cholecystectomy is demonstrated. Impression: 1. Little interval change in the chest. Nonspecific coarsening of interstitial markings in the mid to lower chest may in part be chronic. Minimal pulmonary edema is not excluded. 07/18/2017 4:47 PM PROCEDURE INTERPRETED AT [facility] DEPARTMENT OF RADIOLOGY Final Report Signed by: Dr. Jarocho Mahmood
[2017-07-18 16:59] LABS: Basophils # 0.1 10*3/uL (0.0-0.2); Basophils % 0.5 % (0.0-0.8); Eosinophils % 0.2 % (0.00-10.9); Hematocrit 44.1 VOL% (35.7-47.0); Hemoglobin 14.5 GM/DL (12.0-16.0); Immature Granulocytes % 1.4 %; Immature Granulocytes Absolute 0.15 #; Lymphocytes # 0.6 10*3/uL (1.4-4.0); Lymphocytes % 5.6 % (21.3-54.2); Mean Corpuscular HGB Conc 32.9 GM/DL (32-36); Mean Corpuscular Hemoglobin 30 PG (27-34); Mean Corpuscular Volume 90.6 FL (87-102); Mean Platelet Volume 8.9 FL (9.6-12.0); Monocytes # 0.1 10*3/uL (0.11-0.8); Monocytes % 0.5 % (1.7-12.7); Neutrophils # 10.1 10*3/uL (1.4-7.4); Neutrophils % 91.8 % (38.7-73.9); Platelet Count 278 T/CUMM (130-400); Red Blood Count 4.87 MC/CUMM (3.8-5.5); Red Cell Distribution Width 14.3 % (9.3-17.3)
[2017-07-18 17:16] LABS: INR 0.9; PT Patient Result 9.9 SECS
[2017-07-18] MEDS: INSULIN LISPRO 100 UNIT/ML SUBCUT SCH ×2 (17:27→20:19)
[2017-07-18 17:29] LABS: Alanine Aminotransferase 24 U/L (13-56); Albumin 3.2 G/DL (3.4-5.0); Alkaline Phosphatase 211 U/L (45-117); Aspartate Amino Transferase 23 U/L (0-37); Bilirubin,Total < 0.39 MG/DL (0.2-1.0); Blood Urea Nitrogen 33 MG/DL (7-18); Glucose 484 MG/DL (74-106); Osmolality,Calculated 295.2 MOS/KG (273-304); Potassium 4.7 MMOL/L (3.5-5.1); Sodium 134 MMOL/L (136-145); Total Protein 6.6 G/DL (6.4-8.3)
[2017-07-18] MEDS: methylPREDNISolone SOD SUC 40 MG/1 ML VIAL IV SCH (17:30)
[2017-07-18] MEDS ORDERED: LEVOFLOXACIN INJ 750 MG in PREMIX 1 EACH IV SCH (17:30)
[2017-07-18 18:44] LABS: Lymphocytes 4 % (20-55); Segmented Neutrophils 96 % (50-85)
[2017-07-18 18:45] LABS: Platelet Estimate Adequate; Total Cells Counted 100
[2017-07-18] MEDS: ALBUTEROL/IPRATROPIUM 3 ML NEB RESP TX SCH (20:30)
[2017-07-18] MEDS ORDERED: INSULIN GLARGINE 100 UNIT/ML SUBCUT SCH (21:00)
[2017-07-19] MEDS: ALBUTEROL/IPRATROPIUM 3 ML NEB RESP TX SCH ×4 (00:20→19:39)
[2017-07-19] MEDS: AMITRIPTYLINE 25 MG TABLET PO SCH ×2 (00:54→21:21)
[2017-07-19] MEDS: methylPREDNISolone SOD SUC 40 MG/1 ML VIAL IV SCH ×2 (01:10→08:43)
[2017-07-19 01:59] LABS: Apearance,Urine Hazy (Clear); Bacteria,Urine Many /HPF (Few); Bilirubin,Urine Negative (Negative); Blood, Urine NEGATIVE (Negative); Glucose,Urine (UA) 500 mg/dL (Negative); Ketones,Urine Negative (Negative); Mucus,Urine Occasional /LPF (Occasional); Nitrite,Urine Positive (Negative); Protein,Urine >=500 MG/DL; Squamous Epithelial Cell,Urine Occasional /HPF (0-10); Urine Color Yellow (Yellow); WBC,Urine 75 /HPF (0-6)
[2017-07-19 02:02] LABS: Urine Urobilinogen < 2.0 EU/DL (0.2-1.0)
[2017-07-19 06:41] LABS: Basophils % 0.1 % (0.0-0.8); Hematocrit 40.5 VOL% (35.7-47.0); Hemoglobin 13.2 GM/DL (12.0-16.0); Immature Granulocytes % 1.5 %; Immature Granulocytes Absolute 0.18 #; Lymphocytes # 1.2 10*3/uL (1.4-4.0); Lymphocytes % 9.8 % (21.3-54.2); Mean Corpuscular HGB Conc 32.6 GM/DL (32-36); Mean Corpuscular Hemoglobin 29 PG (27-34); Mean Platelet Volume 9.3 FL (9.6-12.0); Monocytes # 0.1 10*3/uL (0.11-0.8); Neutrophils # 10.3 10*3/uL (1.4-7.4); Neutrophils % 87.6 % (38.7-73.9); Platelet Count 249 T/CUMM (130-400); Red Cell Distribution Width 14.2 % (9.3-17.3); White Blood Count 11.7 T/CUMM (4-12)
[2017-07-19 07:13] LABS: Free T4 (Free Thyroxine) 1.47 NG/DL (0.76-1.46); Thyroid Stimulating Hormone 1.01 uIU/ml (0.358-3.74)
[2017-07-19 07:25] LABS: Calcium 9.4 MG/DL (8.5-10.1); Magnesium 2.2 MG/DL (1.8-2.4); Osmolality,Calculated 307.5 MOS/KG (273-304); Potassium 5.2 MMOL/L (3.5-5.1)
[2017-07-19] MEDS: INSULIN LISPRO 100 UNIT/ML SUBCUT SCH ×4 (08:41→21:22)
[2017-07-19] MEDS: PANTOPRAZOLE 40 MG TABLET PO SCH (08:43)
--- NOTE | 2017-07-19 13:43 | Hospitalist Progress Note ---
Assessment and Plan (1) COPD with exacerbation Status: Acute Assessment and plan: Symptomatically improved with change to oral stride continue bronchodilators continue to discourage smoking offered nicotine patch is started on 14 mcg Current Visit: No (2) Hyperkalemia Status: Acute Assessment and plan: Probably due to hypoglycemia and the expect to be correct after glucose is controlled Current Visit: No (3) Chronic kidney disease Status: Chronic Current Visit: No (4) Diabetes mellitus Status: Chronic Assessment and plan: Patient has hyperglycemia with diabetes patient came her blood sugar was not that high at home but I will check hemoglobin A1c. She is only on once a day insulin I believe she has to be on more frequent we will continue monitor her sugar with the short-acting insulin with meals and increase the baseline to 35 units Current Visit: No Qualifiers: Diabetes mellitus type: type 2 Chronic kidney disease stage: stage 3 ( moderate) Hospitalist: Subjective Interval history: Patient admitted with the COPD exacerbation. She has history of hypoglycemia She reported to have a high sugar required 18 units of lispro this morning. Blood sugar in the chemistry was 633 No fever dyspnea and wheezing improved Exam - Constitutional Vitals: Period Temp Pulse Resp BP Sys/Rod Pulse Ox Last 24 Hr 96.5 F-98.4 F 88-109 18-23 141-165/65-92 90-99 General appearance: no acute distress, over weight - Head Head exam: Present: normal inspection, normocephalic, atraumatic - Eye Eye exam: Absent: conjunctival injection Pupils: Present: DEBRA, normal accommodation - Respiratory Respiratory exam: Present: rhonchi (Bilateral equal air entry with the few rhonchi especially posteriorly). Absent: accessory muscle use - Cardiovascular Cardiovascular exam: Present: regular rate and rhythm. Absent: systolic murmur - GI/Abdominal GI/Abdominal exam: Present: normal bowel sounds, soft. Absent: distended, tenderness - Extremities Exam Extremities exam: Present: normal inspection. Absent: edema - Neurological Exam Neurological exam: Present: alert, oriented X3 Results - Labs CBC & BMP: 07/19/17 05:54 07/19/17 11:07 Lab Results: I have reviewed the past 24 hour labs
[2017-07-19] MEDS ORDERED: INSULIN GLARGINE 100 UNIT/ML SUBCUT SCH (21:00)
[2017-07-20] MEDS: ALBUTEROL/IPRATROPIUM 3 ML NEB RESP TX SCH ×3 (00:25→13:39)
[2017-07-20 06:38] LABS: Calcium 9.3 MG/DL (8.5-10.1)
[2017-07-20] MEDS: INSULIN LISPRO 100 UNIT/ML SUBCUT SCH ×2 (08:25→12:47)
[2017-07-20] MEDS: PANTOPRAZOLE 40 MG TABLET PO SCH (08:30)
[2017-07-20] MEDS ORDERED: predniSONE 20 MG TABLET PO SCH (09:00)
[2017-07-20] MEDS ORDERED: NICOTINE 14 MG/24 HR PATCH TRANSDERM SCH (09:00)
[2017-07-20 11:45] VITALS: BP 166/94
--- NOTE | 2017-07-20 12:39 | Discharge Summary ---
Hospital Course - Hospital Course Hospital Course: Ms. Crowe is a 66-year-old female with history of diabetes hypertension COPD breast cancer CKD sleep apnea and migraine. She was admitted on 07/18/2017 with cough shortness of breath and wheezing production of sputum without any fever. She has a diffuse rhonchi and significant short of breath. She has been on oxygen at home and still smokes about q/3 third pack a day.. She was admitted and started on nebulizer treatment and IV steroid. She was started on levofloxacin also. I had a discussion with her about smoking and the encouraged to quit smoking she started using weight and I asked her not to use that and offered nicotine patch which she agreed to try and started on 14 mcg nicotine patch. Symptomatically he is improved and denies any short of breath now. She still has some rhonchi on auscultation and patient states that she always has this wheezing and follow by Dr. Marina. She is symptomatically feeling better enough to go home. I had change her steroids from Solu-Medrol to p.o. prednisone and will continue that for 5 days after discharge at this dose. She can continue with her home dose of prednisone after that. Her blood sugar was high during this day and was more than 600 on chemistry yesterday. She was on insulin Lantus insulin 25 units daily without any short-acting insulin. She says her blood sugar at home does not shoot up like this and does usually stay in good range. She will be on be on p.o. prednisone so I have asked her to continue with a 35 unit insulin which I started giving her. I asked her to check her blood sugar before meals and after meals keep a log and follow-up with Dr. Henao to adjust insulin dose if she feels her blood sugar is low or symptomatic she need to cut down her Lantus insulin to previous dose. She will be discharged and followed by Dr. Henao she also need to follow-up with her home health aide caregiver Dr. Lopez. She can return to the ER if her symptom worsens again Diagnosis - Discharge Diagnosis (1) COPD with exacerbation Status: Acute (2) Hyperkalemia Status: Acute (3) Chronic kidney disease Status: Chronic (4) Diabetes mellitus Status: Chronic Discharge Plan - Discharge Data Disposition: Disch To Home/Self Care Condition at Discharge: Stable Discharge Diet: diabetic diet Activity: resume usual activities as tolerated - Discharge Medications New Insulin Glargine [Lantus] 35 unit SUBCUT BEDTIME #1 vial Nicotine 14 mg/24 Hr Patch [Nicoderm CQ 14 mg/24 hr Patch] 1 patch TRANSDERM DAILY #20 patch predniSONE TAB [PredniSONE] 40 mg PO DAILY #10 tablet Levofloxacin Tab [Levaquin Tab] 500 mg PO DAILY #5 tablet Continue Hydralazine HCl 25 mg PO BID W/MEALS Gabapentin 300 mg PO TID Rosuvastatin [Crestor] 10 mg PO BEDTIME Aspirin EC Tab 81 mg PO DAILY Anastrozole 1 mg PO DAILY Cetirizine Tab [ZyrTEC Tab] 10 mg PO DAILY Cholecalciferol (Vitamin D3) [Vitamin D3] 2,000 unit PO DAILY Levothyroxine Tab [Synthroid Tab] 100 mcg PO DAILY@0700 Amitriptyline [Elavil] 25 mg PO BEDTIME Pantoprazole Tab [Protonix Tab] 40 mg PO DAILY Benzonatate 100 - 200 mg PO Q8H PRN PRN Reason: Cough Ipratropium/Albuterol Inhaler [Combivent Respimat Inhaler] 1 puff INH DAILY Eletriptan HBr [Relpax] 40 mg PO DAILY PRN PRN Reason: Migraine Headache Magnesium Oxide 400 mg PO BID #60 tablet predniSONE TAB [PredniSONE] 10 mg PO DAILY #20 tablet Furosemide Tab [Lasix Tab] 40 mg PO BID DIURETIC Albuterol Sulfate [Ventolin HFA] 2 puff INH Q6H PRN PRN Reason: Shortness Of Breath/Wheezing Theophylline ER Tab 300 mg PO BID W/MEALS #60 tablet Montelukast Tab [Singulair Tab] 10 mg PO DAILY Discontinued Insulin Glargine,Hum.rec.anlog [Lantus SoloStar] 25 unit SUBCUT BEDTIME Albuterol Liquid [Proventil Liquid] 2.5 mls BID - Follow Up or Referral Follow Up: Maurice Henao MD [Primary Care Provider] - Wilbur Marina MD [Physician] - - Forms/Instructions Exam - Constitutional Vitals: Period Temp Pulse Resp BP Sys/Rod Pulse Ox Last 24 Hr 96.4 F-98.4 F 89-103 18-20 135-171/71-94 94-99 General appearance: normal weight, no acute distress - Head Head exam: Present: normal inspection, normocephalic, atraumatic - Eye Eye exam: Present: EOMI. Absent: conjunctival injection Pupils: Present: DEBRA, normal accommodation - Neck Neck exam: Present: normal inspection - Respiratory Respiratory exam: Bilateral equal air entry with some rhonchi on auscultation - Cardiovascular Cardiovascular exam: Present: regular rate and rhythm. Absent: tachycardia - GI/Abdominal GI/Abdominal exam: Present: normal bowel sounds, soft. Absent: distended, tenderness - Extremities Exam Extremities exam: Present: normal inspection. Absent: edema - Neurological Exam Neurological exam: Present: alert, oriented X3, other (Right foot drop) Discharge Results Procedures and tests throughout hospitalization: Pending Orders 07/18/17 15:52 Sputum Culture and Gram Stain Routine 07/18/17 16:39 Blood Culture Stat 07/18/17 23:45 Urine Culture Routine Labs on day of discharge: Labs from last 24 hours 07/20/17 07/20/17 07/20/17 11:12 07:01 05:35 Sodium Potassium Chloride Carbon Dioxide Anion Gap BUN Creatinine GFR Calculation BUN/Creatinine Ratio Glucose POC Glucose 228 H 159 H Hemoglobin A1c 8.9 H Calculated Osmolality Calcium 07/20/17 07/19/17 07/19/17 05:35 22:27 20:27 Sodium 143 Potassium 5.0 Chloride 108 H Carbon Dioxide 25 Anion Gap 15.0 BUN 48 H D Creatinine 2.50 H GFR Calculation 24 BUN/Creatinine Ratio 19.00 Glucose 162 H POC Glucose 386 H 457 H Hemoglobin A1c Calculated Osmolality 301.0 Calcium 9.3 07/19/17 07/19/17 18:13 15:21 Sodium Potassium Chloride Carbon Dioxide Anion Gap BUN Creatinine GFR Calculation BUN/Creatinine Ratio Glucose POC Glucose 423 H 491 H Hemoglobin A1c Calculated Osmolality Calcium Preliminary micro results at discharge 07/19/17 00:45 Urine Culture - Preliminary Urine,Clean Catch Gram Negative Rods 07/18/17 16:39 Blood Culture - Preliminary Blood No growth at 1 day 07/18/17 16:39 Blood Culture - Preliminary Blood No growth at 1 day DS: Provider Date of admission: 07/18/17 14:26 Primary care physician: Maurice Henao MD Attending physician on admission: Cristobal Tobar MD Consults: 07/18/17 16:01 Consult to Case Mgmt/Social Srvs [CONS] Routine Reason for Case Mgmt/Social Srvs: Discharge Planning Discharging clinician: Cristobal Tobar MD
[2017-07-20] MEDS ORDERED: LEVOFLOXACIN INJ 750 MG in PREMIX 1 EACH IV SCH (21:00)
== END 2017-07-20 13:58 | disposition home or self-care (01) | DRG 192 ==
LOC: N.2E 15:24
PROVIDERS: ADMIT Internal Medicine; ATTEND Internal Medicine

== ENCOUNTER 2022-10-12 14:24 | Inpatient (IN) ==
[2022-10-12 17:51] LABS: Basophils # 0.1 10*3/uL (0.0-0.2); Basophils % 0.6 % (0.0-0.8); Eosinophils # 0.3 10*3/uL (0.0-0.87); Eosinophils % 2.8 % (0.00-10.9); Hematocrit 25.9 VOL% (35.7-47.0); Hemoglobin 7.4 GM/DL (12.0-16.0); Immature Granulocytes % 3.5 %; Immature Granulocytes Absolute 0.39 #; Lymphocytes # 2.2 10*3/uL (1.4-4.0); Lymphocytes % 19.5 % (21.3-54.2); Mean Corpuscular HGB Conc 28.6 GM/DL (32-36); Mean Corpuscular Volume 106.6 FL (87-102); Mean Platelet Volume 9.4 FL (9.6-12.0); Monocytes # 0.8 10*3/uL (0.11-0.8); Monocytes % 7.5 % (1.7-12.7); NRBC # 0.02 10*3/uL; Neutrophils % 66.1 % (38.7-73.9); Platelet Count 258 T/CUMM (130-400); Red Blood Count 2.43 MC/CUMM (3.8-5.5); Red Cell Distribution Width 20.9 % (9.3-17.3); White Blood Count 11.3 T/CUMM (4-12)
[2022-10-12 17:54] LABS: Alanine Aminotransferase 11 U/L (13-56); Albumin 2.3 G/DL (3.4-5.0); Alkaline Phosphatase 196 U/L (45-117); Aspartate Amino Transferase 12 U/L (0-37); Bilirubin,Total < 0.39 MG/DL (0.20-1.00); Blood Urea Nitrogen 43 MG/DL (7-18); Carbon Dioxide 23 MMOL/L (21-32); Chloride 111 MMOL/L (98-107); Glucose 234 MG/DL (74-106); Osmolality,Calculated 304.8 MOS/KG (273-304); Potassium 4.9 MMOL/L (3.5-5.1); Sodium 144 MMOL/L (136-145); Total Protein 6.1 G/DL (6.4-8.2)
[2022-10-12 17:59] LABS: Calcium 5.8 MG/DL (8.5-10.1)
[2022-10-12] MEDS ORDERED: CALCIUM GLUCONATE RIDER 2,000 MG/100 ML PREMIX IV ONE (18:43)
[2022-10-12 18:49] LABS: Anisocytosis 1+; Hypochromia Slight; Macrocytosis 1+; Microcytosis 1+; Platelet Estimate Adequate
[2022-10-12] MEDS: ALBUTEROL/IPRATROPIUM 3 ML NEB RESP TX SCH (19:32)
[2022-10-12] MEDS ORDERED: guaiFENesin/DM ER 600-30 MG TABLET PO PRN (20:05)
[2022-10-12] MEDS ORDERED: ALBUTEROL 2.5 MG/3 ML NEB RESP TX PRN (20:05)
[2022-10-12] MEDS ORDERED: ONDANSETRON 4 MG/2 ML VIAL IV PRN (20:05)
[2022-10-12] MEDS ORDERED: hydrALAZINE 20 MG/1 ML VIAL IV PRN (20:05)
[2022-10-12] MEDS ORDERED: ZALEPLON 5 MG CAPSULE PO PRN (20:05)
[2022-10-12] MEDS ORDERED: ACETAMINOPHEN 325 MG TABLET PO PRN (20:05)
[2022-10-12] MEDS ORDERED: diphenhydrAMINE CAP 25 MG CAPSULE PO PRN (20:05)
[2022-10-12] MEDS ORDERED: NICOTINE 21 MG/24 HR PATCH TRANSDERM PRN (20:05)
[2022-10-12] MEDS: INSULIN LISPRO 100 UNIT/ML SUBCUT SCH (22:36)
[2022-10-12 22:40] LABS: Arterial Base Excess iSTAT -5 MMOL/L (-2.5-2.5); Arterial Bicarbonate iSTAT 23.6 MMOL/L (20-26); Arterial O2 Saturation iSTAT 97 % (95-100); Arterial PCO2 iSTAT 63 MM HG (35-48); Arterial PO2 iSTAT 120 MM HG (80-95); Arterial Total CO2 iSTAT 25 MMO/L (23-27)
[2022-10-13] MEDS: ALBUTEROL/IPRATROPIUM 3 ML NEB RESP TX SCH ×7 (00:20→23:10)
[2022-10-13 05:20] LABS: Basophils % 0.4 % (0.0-0.8); Eosinophils # 0.3 10*3/uL (0.0-0.87); Eosinophils % 2.7 % (0.00-10.9); Hematocrit 23.2 VOL% (35.7-47.0); Hemoglobin 6.7 GM/DL (12.0-16.0); Immature Granulocytes % 3.7 %; Immature Granulocytes Absolute 0.34 #; Lymphocytes # 2.2 10*3/uL (1.4-4.0); Lymphocytes % 23.5 % (21.3-54.2); Mean Corpuscular HGB Conc 28.9 GM/DL (32-36); Mean Corpuscular Volume 105.9 FL (87-102); Mean Platelet Volume 9.1 FL (9.6-12.0); Monocytes # 0.8 10*3/uL (0.11-0.8); Monocytes % 8.2 % (1.7-12.7); Neutrophils % 61.5 % (38.7-73.9); Platelet Count 207 T/CUMM (130-400); Red Blood Count 2.19 MC/CUMM (3.8-5.5); Red Cell Distribution Width 20.8 % (9.3-17.3); White Blood Count 9.1 T/CUMM (4-12)
[2022-10-13 05:42] LABS: Calcium 6.3 MG/DL (8.5-10.1); Osmolality,Calculated 297.8 MOS/KG (273-304); Potassium 5.1 MMOL/L (3.5-5.1)
[2022-10-13] MEDS ORDERED: SODIUM BICARBONATE 50 MEQ/50 ML VIAL IV ONE (06:56)
[2022-10-13] MEDS ORDERED: SODIUM CHLORIDE 0.9% 1,000 ML IV PRN (06:58)
[2022-10-13] MEDS ORDERED: SODIUM BICARB INJ 50 MEQ in IV BAG 1 EACH IV SCH (07:30)
[2022-10-13] MEDS: INSULIN LISPRO 100 UNIT/ML SUBCUT SCH ×4 (07:43→20:40)
[2022-10-13 08:33] LABS: Arterial Base Excess iSTAT -6 MMOL/L (-2.5-2.5); Arterial Bicarbonate iSTAT 25.1 MMOL/L (20-26); Arterial O2 Saturation iSTAT 100 % (95-100); Arterial PCO2 iSTAT 70 MM HG (35-48); Arterial PO2 iSTAT 232 MM HG (80-95); Arterial Total CO2 iSTAT 27 MMO/L (23-27); Arterial pH iSTAT 7.161 (7.35-7.45)
[2022-10-13] MEDS: LEVOTHYROXINE 100 MCG TABLET PO SCH (08:40)
[2022-10-13] MEDS: ASPIRIN EC 81 MG TABLET PO SCH (08:40)
[2022-10-13] MEDS: ANASTROZOLE 1 MG TABLET PO SCH (08:40)
[2022-10-13] MEDS: FUROSEMIDE 40 MG TABLET PO SCH (08:40)
[2022-10-13] MEDS: PANTOPRAZOLE 40 MG TABLET PO SCH (08:40)
[2022-10-13] MEDS: ATORVASTATIN 40 MG TABLET PO SCH (08:40)
[2022-10-13 12:57] LABS: Hepatitis B Core IgM Quant 0.06 Index; Hepatitis B Surface Ag Quant < 0.10 Index; Hepatitis B Surface Ag Result Non-Reactive (NonReactive); Hepatitis C Virus Ab Quant < 0.02 Index; Hepatitis C Virus Ab Result Non-Reactive (NonReactive)
[2022-10-13] MEDS ORDERED: HEPARIN 10,000 UNIT/10 ML VIAL IV PRN (14:51)
[2022-10-13 17:37] LABS: Hematocrit 33.9 VOL% (35.7-47.0); Hemoglobin 10.3 GM/DL (12.0-16.0)
[2022-10-13] MEDS: AMITRIPTYLINE 25 MG TABLET PO SCH ×2 (20:40→20:48)
[2022-10-13] MEDS: GABAPENTIN 300 MG CAPSULE PO SCH ×2 (20:40→20:49)
[2022-10-13 21:40] LABS: Arterial Base Excess iSTAT -1 MMOL/L (-2.5-2.5); Arterial Bicarbonate iSTAT 26.2 MMOL/L (20-26); Arterial O2 Saturation iSTAT 74 % (95-100); Arterial PCO2 iSTAT 54 MM HG (35-48); Arterial PO2 iSTAT 44 MM HG (80-95); Arterial Total CO2 iSTAT 28 MMO/L (23-27); Arterial pH iSTAT 7.296 (7.35-7.45)
[2022-10-14] MEDS: ALBUTEROL/IPRATROPIUM 3 ML NEB RESP TX SCH ×6 (02:30→23:30)
[2022-10-14] MEDS: LEVOTHYROXINE 100 MCG TABLET PO SCH (06:17)
[2022-10-14 06:27] LABS: Basophils % 0.5 % (0.0-0.8); Eosinophils # 0.2 10*3/uL (0.0-0.87); Eosinophils % 2.5 % (0.00-10.9); Hematocrit 33.6 VOL% (35.7-47.0); Immature Granulocytes % 1.4 %; Immature Granulocytes Absolute 0.11 #; Lymphocytes # 1.5 10*3/uL (1.4-4.0); Lymphocytes % 18.5 % (21.3-54.2); Mean Corpuscular HGB Conc 29.8 GM/DL (32-36); Mean Corpuscular Volume 100.9 FL (87-102); Mean Platelet Volume 8.9 FL (9.6-12.0); Monocytes # 0.7 10*3/uL (0.11-0.8); Monocytes % 8.2 % (1.7-12.7); Neutrophils % 68.9 % (38.7-73.9); Platelet Count 174 T/CUMM (130-400); Red Blood Count 3.33 MC/CUMM (3.8-5.5); Red Cell Distribution Width 19.9 % (9.3-17.3)
[2022-10-14 06:44] LABS: Uric Acid 7.2 MG/DL (2.6-6.0)
[2022-10-14 06:45] LABS: Calcium 6.5 MG/DL (8.5-10.1); Osmolality,Calculated 291.8 MOS/KG (273-304); Potassium 4.3 MMOL/L (3.5-5.1)
[2022-10-14] MEDS: INSULIN LISPRO 100 UNIT/ML SUBCUT SCH ×4 (08:19→20:43)
[2022-10-14 09:03] LABS: Arterial Base Excess iSTAT -2 MMOL/L (-2.5-2.5); Arterial Bicarbonate iSTAT 27.2 MMOL/L (20-26); Arterial O2 Saturation iSTAT 81 % (95-100); Arterial PCO2 iSTAT 66 MM HG (35-48); Arterial PO2 iSTAT 56 MM HG (80-95); Arterial Total CO2 iSTAT 29 MMO/L (23-27)
[2022-10-14] MEDS: ANASTROZOLE 1 MG TABLET PO SCH (09:49)
[2022-10-14] MEDS: ASPIRIN EC 81 MG TABLET PO SCH (09:50)
[2022-10-14] MEDS: FUROSEMIDE 40 MG TABLET PO SCH (09:50)
[2022-10-14] MEDS: PANTOPRAZOLE 40 MG TABLET PO SCH (09:50)
[2022-10-14] MEDS: ATORVASTATIN 40 MG TABLET PO SCH (09:50)
[2022-10-14 15:50] LABS: Arterial Base Excess iSTAT 1 MMOL/L (-2.5-2.5); Arterial Bicarbonate iSTAT 25.7 MMOL/L (20-26); Arterial O2 Saturation iSTAT 96 % (95-100); Arterial PCO2 iSTAT 43 MM HG (35-48); Arterial PO2 iSTAT 85 MM HG (80-95); Arterial Total CO2 iSTAT 27 MMO/L (23-27); Arterial pH iSTAT 7.388 (7.35-7.45)
[2022-10-14] MEDS: SEVELAMER CARBONATE 800 MG TABLET PO SCH (17:21)
[2022-10-14] MEDS ORDERED: traMADol 50 MG TABLET PO PRN (21:35)
[2022-10-15] MEDS: ALBUTEROL/IPRATROPIUM 3 ML NEB RESP TX SCH ×5 (02:50→20:13)
[2022-10-15] MEDS: LEVOTHYROXINE 100 MCG TABLET PO SCH (06:17)
[2022-10-15 07:11] LABS: Calcium 7.4 MG/DL (8.5-10.1); Osmolality,Calculated 277.5 MOS/KG (273-304)
[2022-10-15 07:15] LABS: Parathyroid Hormone Intact 6.8 PG/ML (18.4-80.1)
[2022-10-15] MEDS: INSULIN LISPRO 100 UNIT/ML SUBCUT SCH ×4 (07:36→23:09)
[2022-10-15 07:47] LABS: Basophils # 0.1 10*3/uL (0.0-0.2); Basophils % 0.7 % (0.0-0.8); Eosinophils # 0.3 10*3/uL (0.0-0.87); Eosinophils % 4.3 % (0.00-10.9); Hematocrit 36.8 VOL% (35.7-47.0); Hemoglobin 11.2 GM/DL (12.0-16.0); Immature Granulocytes % 1.6 %; Immature Granulocytes Absolute 0.12 #; Lymphocytes # 1.6 10*3/uL (1.4-4.0); Lymphocytes % 21.9 % (21.3-54.2); Mean Corpuscular HGB Conc 30.4 GM/DL (32-36); Mean Corpuscular Volume 100.8 FL (87-102); Mean Platelet Volume 9.2 FL (9.6-12.0); Monocytes # 0.5 10*3/uL (0.11-0.8); Monocytes % 7.2 % (1.7-12.7); Neutrophils % 64.3 % (38.7-73.9); Platelet Count 194 T/CUMM (130-400); Red Blood Count 3.65 MC/CUMM (3.8-5.5); Red Cell Distribution Width 19.5 % (9.3-17.3); White Blood Count 7.4 T/CUMM (4-12)
[2022-10-15] MEDS: PANTOPRAZOLE 40 MG TABLET PO SCH (08:41)
[2022-10-15] MEDS: ASPIRIN EC 81 MG TABLET PO SCH (08:41)
[2022-10-15] MEDS: ATORVASTATIN 40 MG TABLET PO SCH (08:41)
[2022-10-15] MEDS: ANASTROZOLE 1 MG TABLET PO SCH (08:41)
[2022-10-15] MEDS: SEVELAMER CARBONATE 800 MG TABLET PO SCH ×3 (09:18→16:54)
[2022-10-15 14:49] LABS: Arterial Base Excess iSTAT 1 MMOL/L (-2.5-2.5); Arterial Bicarbonate iSTAT 28.1 MMOL/L (20-26); Arterial O2 Saturation iSTAT 99 % (95-100); Arterial PCO2 iSTAT 55 MM HG (35-48); Arterial PO2 iSTAT 135 MM HG (80-95); Arterial Total CO2 iSTAT 30 MMO/L (23-27)
[2022-10-16] MEDS: ALBUTEROL/IPRATROPIUM 3 ML NEB RESP TX SCH ×7 (00:36→23:45)
[2022-10-16] MEDS: LEVOTHYROXINE 100 MCG TABLET PO SCH (06:23)
[2022-10-16] MEDS: INSULIN LISPRO 100 UNIT/ML SUBCUT SCH ×4 (09:27→20:57)
[2022-10-16] MEDS: SEVELAMER CARBONATE 800 MG TABLET PO SCH ×3 (09:32→17:18)
[2022-10-16] MEDS: PANTOPRAZOLE 40 MG TABLET PO SCH (09:32)
[2022-10-16] MEDS: ATORVASTATIN 40 MG TABLET PO SCH (09:32)
[2022-10-16] MEDS: ANASTROZOLE 1 MG TABLET PO SCH (09:32)
[2022-10-16] MEDS: ASPIRIN EC 81 MG TABLET PO SCH (09:32)
[2022-10-16 09:42] LABS: Basophils # 0.1 10*3/uL (0.0-0.2); Basophils % 0.7 % (0.0-0.8); Eosinophils # 0.3 10*3/uL (0.0-0.87); Eosinophils % 3.9 % (0.00-10.9); Hematocrit 37.4 VOL% (35.7-47.0); Hemoglobin 11.4 GM/DL (12.0-16.0); Immature Granulocytes % 0.9 %; Immature Granulocytes Absolute 0.08 #; Lymphocytes # 1.1 10*3/uL (1.4-4.0); Lymphocytes % 13.4 % (21.3-54.2); Mean Corpuscular HGB Conc 30.5 GM/DL (32-36); Monocytes # 0.6 10*3/uL (0.11-0.8); Monocytes % 7.2 % (1.7-12.7); Neutrophils % 73.9 % (38.7-73.9); Platelet Count 207 T/CUMM (130-400); Red Blood Count 3.74 MC/CUMM (3.8-5.5); White Blood Count 8.5 T/CUMM (4-12)
[2022-10-16 09:54] LABS: Calcium 7.5 MG/DL (8.5-10.1); Free T4 (Free Thyroxine) 1.35 NG/DL (0.76-1.46); Osmolality,Calculated 282.4 MOS/KG (273-304); Potassium 3.9 MMOL/L (3.5-5.1)
[2022-10-16 10:12] LABS: Barbiturates Screen,Urine Negative (Negative); Benzodiazepines Screen,Urine Negative (Negative); Cannabinoid Screen,Urine Negative (Negative); Opiate Screen,Urine Negative (Negative); Phencyclidine Screen,Urine Negative (Negative)
[2022-10-16] MEDS: FLUCONAZOLE 100 MG TABLET PO SCH (12:56)
[2022-10-16] MEDS: CLINDAMYCIN INJ 600 MG/50 ML PREMIX IV SCH ×2 (17:18→21:46)
[2022-10-16] MEDS ORDERED: DEXTROSE 10% 250 ML BAG IV PRN (20:58)
[2022-10-16] MEDS: KETOCONAZOLE 2% CREAM 30 GM TUBE TOP SCH (21:04)
[2022-10-17] MEDS: ALBUTEROL/IPRATROPIUM 3 ML NEB RESP TX SCH ×6 (03:10→23:39)
[2022-10-17] MEDS: CLINDAMYCIN INJ 600 MG/50 ML PREMIX IV SCH ×3 (05:43→22:12)
[2022-10-17] MEDS: ASPIRIN EC 81 MG TABLET PO SCH (09:00)
[2022-10-17] MEDS: LEVOTHYROXINE 100 MCG TABLET PO SCH (09:00)
[2022-10-17] MEDS: PANTOPRAZOLE 40 MG TABLET PO SCH (09:00)
[2022-10-17] MEDS: KETOCONAZOLE 2% CREAM 30 GM TUBE TOP SCH ×2 (09:00→22:14)
[2022-10-17] MEDS: FLUCONAZOLE 100 MG TABLET PO SCH (09:00)
[2022-10-17] MEDS: SEVELAMER CARBONATE 800 MG TABLET PO SCH ×3 (09:00→16:22)
[2022-10-17] MEDS: ATORVASTATIN 40 MG TABLET PO SCH (09:00)
[2022-10-17] MEDS: ANASTROZOLE 1 MG TABLET PO SCH (09:00)
[2022-10-17] MEDS: INSULIN LISPRO 100 UNIT/ML SUBCUT SCH ×4 (10:59→22:10)
[2022-10-18] MEDS: ALBUTEROL/IPRATROPIUM 3 ML NEB RESP TX SCH ×6 (03:38→22:53)
[2022-10-18 05:24] LABS: Basophils % 0.5 % (0.0-0.8); Eosinophils # 0.2 10*3/uL (0.0-0.87); Eosinophils % 3.2 % (0.00-10.9); Hematocrit 33.1 VOL% (35.7-47.0); Hemoglobin 10.1 GM/DL (12.0-16.0); Immature Granulocytes % 0.9 %; Immature Granulocytes Absolute 0.06 #; Lymphocytes # 0.7 10*3/uL (1.4-4.0); Lymphocytes % 11.1 % (21.3-54.2); Mean Corpuscular HGB Conc 30.5 GM/DL (32-36); Mean Corpuscular Volume 99.7 FL (87-102); Mean Platelet Volume 9.4 FL (9.6-12.0); Monocytes # 0.5 10*3/uL (0.11-0.8); Neutrophils % 77.3 % (38.7-73.9); Platelet Count 167 T/CUMM (130-400); Red Blood Count 3.32 MC/CUMM (3.8-5.5); Red Cell Distribution Width 18.6 % (9.3-17.3); White Blood Count 6.6 T/CUMM (4-12)
[2022-10-18 05:44] LABS: Alanine Aminotransferase < 9 U/L (13-56); Albumin 2.1 G/DL (3.4-5.0); Alkaline Phosphatase 164 U/L (45-117); Aspartate Amino Transferase 13 U/L (0-37); Bilirubin,Total < 0.39 MG/DL (0.20-1.00); Blood Urea Nitrogen 11 MG/DL (7-18); Calcium 6.7 MG/DL (8.5-10.1); Carbon Dioxide 31 MMOL/L (21-32); Chloride 104 MMOL/L (98-107); Glucose 88 MG/DL (74-106); Osmolality,Calculated 278.3 MOS/KG (273-304); Potassium 3.5 MMOL/L (3.5-5.1); Sodium 141 MMOL/L (136-145); Total Protein 5.3 G/DL (6.4-8.2)
[2022-10-18] MEDS: CLINDAMYCIN INJ 600 MG/50 ML PREMIX IV SCH (06:08)
[2022-10-18] MEDS: INSULIN LISPRO 100 UNIT/ML SUBCUT SCH ×4 (08:01→21:29)
[2022-10-18] MEDS ORDERED: CEFEPIME 2,000 MG in SODIUM CHLORIDE 0.9% 100 ML IV SCH (08:30)
[2022-10-18] MEDS ORDERED: CEFEPIME 1,000 MG in SODIUM CHLORIDE 0.9% 100 ML IV ONE (09:00)
[2022-10-18] MEDS ORDERED: LEVOFLOXACIN INJ 750 MG/150 ML PREMIX IV ONE (10:00)
[2022-10-18] MEDS: ATORVASTATIN 40 MG TABLET PO SCH (11:12)
[2022-10-18] MEDS: SEVELAMER CARBONATE 800 MG TABLET PO SCH ×3 (11:12→16:50)
[2022-10-18] MEDS: ASPIRIN EC 81 MG TABLET PO SCH (11:12)
[2022-10-18] MEDS: FLUCONAZOLE 100 MG TABLET PO SCH (11:13)
[2022-10-18] MEDS: PANTOPRAZOLE 40 MG TABLET PO SCH (11:13)
[2022-10-18] MEDS: ANASTROZOLE 1 MG TABLET PO SCH (11:13)
[2022-10-18] MEDS: LEVOTHYROXINE 100 MCG TABLET PO SCH (11:14)
[2022-10-18] MEDS: KETOCONAZOLE 2% CREAM 30 GM TUBE TOP SCH ×2 (11:14→21:29)
[2022-10-19] MEDS: ALBUTEROL/IPRATROPIUM 3 ML NEB RESP TX SCH ×3 (03:03→11:10)
[2022-10-19 04:52] LABS: Basophils % 0.4 % (0.0-0.8); Eosinophils # 0.4 10*3/uL (0.0-0.87); Eosinophils % 4.8 % (0.00-10.9); Hematocrit 31.1 VOL% (35.7-47.0); Hemoglobin 9.4 GM/DL (12.0-16.0); Immature Granulocytes % 1.1 %; Immature Granulocytes Absolute 0.08 #; Lymphocytes # 1.2 10*3/uL (1.4-4.0); Lymphocytes % 15.8 % (21.3-54.2); Mean Corpuscular HGB Conc 30.2 GM/DL (32-36); Mean Platelet Volume 9.4 FL (9.6-12.0); Monocytes # 0.7 10*3/uL (0.11-0.8); Monocytes % 9.2 % (1.7-12.7); Neutrophils % 68.7 % (38.7-73.9); Platelet Count 156 T/CUMM (130-400); Red Blood Count 3.11 MC/CUMM (3.8-5.5); Red Cell Distribution Width 18.4 % (9.3-17.3); White Blood Count 7.3 T/CUMM (4-12)
[2022-10-19 05:14] LABS: Alanine Aminotransferase 9 U/L (13-56); Alkaline Phosphatase 149 U/L (45-117); Aspartate Amino Transferase 14 U/L (0-37); Bilirubin,Total < 0.39 MG/DL (0.20-1.00); Blood Urea Nitrogen 16 MG/DL (7-18); Calcium 6.5 MG/DL (8.5-10.1); Carbon Dioxide 29 MMOL/L (21-32); Chloride 107 MMOL/L (98-107); Glucose 107 MG/DL (74-106); Potassium 3.5 MMOL/L (3.5-5.1); Sodium 143 MMOL/L (136-145); Total Protein 5.1 G/DL (6.4-8.2)
[2022-10-19] MEDS: LEVOTHYROXINE 100 MCG TABLET PO SCH (06:09)
[2022-10-19] MEDS ORDERED: calcitrioL 0.25 MCG CAPSULE PO SCH (09:00)
[2022-10-19] MEDS: INSULIN LISPRO 100 UNIT/ML SUBCUT SCH ×2 (09:06→11:59)
[2022-10-19] MEDS: SEVELAMER CARBONATE 800 MG TABLET PO SCH ×2 (11:07→11:11)
[2022-10-19] MEDS: ASPIRIN EC 81 MG TABLET PO SCH (11:10)
[2022-10-19] MEDS: PANTOPRAZOLE 40 MG TABLET PO SCH (11:10)
[2022-10-19] MEDS: ATORVASTATIN 40 MG TABLET PO SCH (11:10)
[2022-10-19] MEDS: ANASTROZOLE 1 MG TABLET PO SCH (11:10)
[2022-10-19] MEDS: KETOCONAZOLE 2% CREAM 30 GM TUBE TOP SCH (11:11)
[2022-10-19 12:07] VITALS: BP 146/56
[2022-10-19] MEDS ORDERED: CEFEPIME 1,000 MG in SODIUM CHLORIDE 0.9% 100 ML IV SCH (17:00)
[2022-10-20] MEDS ORDERED: LEVOFLOXACIN INJ 500 MG/100 ML PREMIX IV SCH (18:00)
== END 2022-10-19 14:23 | disposition home health service (06) | DRG 640 ==
LOC: N.EDINP 14:24 → N.ED 14:24 → N.3E 21:27 → SUATTDRO 10-14 10:51
PROVIDERS: ADMIT Internal Medicine; ATTEND Family Medicine